=== PATIENT | female | born 1940 | race Caucasian/White ===

== ENCOUNTER 2019-12-21 12:17 | Inpatient (IN) | payer OTHER ==
--- NOTE | 2019-12-21 12:44 | PDOC ---
History of Present Illness - General Chief Complaint: Injury Stated Complaint: FALL Time Seen by Provider: 12/21/19 12:43 Past History - Medical History Allergies/Adverse Reactions: Allergies Allergy/AdvReac Type Severity Reaction Status Date / Time apple Allergy Swelling Verified 12/21/19 13:04 Home Medications: Ambulatory Orders Atenolol [Tenormin -] 20 mg PO DAILY 10/30/11 Levothyroxine [Synthroid -] 100 mcg PO DAILY 10/30/11 Valsartan [Diovan] 80 mg PO DAILY 10/30/11 Anemia: No Asthma: No Cancer: No Cardiac Disorders: No CVA: No COPD: No CHF: No Dementia: No Diabetes: No GI Disorders: Yes (Gallbladder, ABD. PAIN, PEPTIC ULCER DISEASE) Disorders: No HTN: Yes Hypercholesterolemia: Yes (NO MEDS) Liver Disease: No Seizures: No Thyroid Disease: Yes (Hypothyroid) - Surgical History Abdominal Surgery: No Appendectomy: No Cardiac Surgery: No Cholecystectomy: No Lung Surgery: No Neurologic Surgery: No Orthopedic Surgery: No - Immunization History Td Vaccination: Yes TDAP Vaccination: Yes Immunization Up to Date: No - Psycho-Social/Smoking History Smoking Status: Yes Smoking History: Never smoked Number of Cigarettes Smoked Daily: 0 ED Treatment Course - LABORATORY CBC & Chemistry Diagram: 12/21/19 13:03 12/21/19 13:03 Medical Decision Making - Medical Decision Making 12/21/19 12:45 HPI: 79yo F hx spinal stenosis, arthritis, fibromyalgia, HTN, and hypothyroidism (poorly compliant with synthroid), poor f/u with doctors (no PCP, last visit years ago), and venous insuffiency with LE edema BIBA from home c/o 1wk worsening chronic LBP radiating/shooting down RLE with subsequent BLE weakness and collapse 2 days ago. In home 2 days ago witnessed collapse to ground, legs felt weak and just slowly slumped down, unable to get up x2 days, using pads for urination, brought her fluids but she did not eat because she didn't want to have to pass stool, LBM 4 days ago says needs to go but holding it in because couldn't stand up. No hx similar episodes or falls. Denies LOC, head injury, syncope, preceding CP or SOB, seizure-like activity. Pt states usually unable to lift legs off bed, but worsening weakness in BLEs x2 days. Pt also c/o difficulty writing/fine motor skills x2 days, prior to fall pt was knitting/crocheting, now unable to lift blanket. Denies numbness/tingling, headache, vision changes, difficulty speaking, facial droop, hx CVA or neurologic disease. Pt uses wheelchair at baseline but is able to get out and walk small distances to bathroom etc usually. Denies recent illness, travel, sick contacts, F/C, N/V, abdominal pain, CP, SOB, neck pain. ROS: Constitutional: Positive for generalized weakness, fall/collapse. Negative for chills, fever, fatigue, diaphoresis. HENT: Negative for sore throat, rhinorrhea, congestion. Eyes: Negative for visual disturbance. Respiratory: Negative for shortness of breath, cough, and wheezing. Cardiovascular: Negative for chest pain, palpitations, and leg swelling. Gastrointestinal: Negative for abdominal pain, blood in stool, constipation, diarrhea, nausea, and vomiting. Genitourinary: Negative for dysuria, flank pain, and hematuria. Musculoskeletal: Positive for back pain. Negative for myalgias, and neck pain. Skin: Negative for rash. Neurological: Positive for BLE weakness, difficulty BUE fine motor skills. Negative for light-headedness, dizziness, vertigo, syncope, numbness and headaches. Psychiatric/Behavioral: Negative for behavioral problems and confusion. PE: limited 2/2 obesity/soft tissue Gen: Alert, NAD, comfortable-appearing, morbidly obese, appears younger than stated age HEENT: PERRL, EOMI, dry MM, NCAT. No conjunctival pallor. Sclera are non- icteric. CV: Regular rate and rhythm. +murmur. No rubs, or gallops. PULM: No resp distress. CTAB, no wheezes, rales, or rhonchi. ABD: protuberant, soft, NT/ND, no rebound tenderness or guarding, no CVA tenderness. Rectal exam performed. Good rectal tone but perianal anesthesia and pt does not feel herself squeezing. +skin flaps. No nick blood, fissures, or hemorrhoids seen. No masses or hemorrhoids felt. No pain with digital insertion. BACK: +ttp l-spine. No TTP of c/t-spine. No step-offs or deformities. MSK: No bony deformities. 2+ pulses in all extremities. NEURO: AAOx3. PERRL. CN 2-12 intact. No facial droop. Sensation to light touch intact in all extremities. Poor fine motor skills b/l hands, difficulty with "okay" sign b/l, unable to straighten L fingers completely, atrophy of hand musculature, sensation intact throughout, 5/5 strength BUEs, 4/5 strength BLEs, unable to lift legs off bed (baseline per pt). EXTREMITIES: No cyanosis. No clubbing. +nonpitting edema BLE. No calf tenderness. PSYCH: Normal mood and thought pattern. SKIN: Warm and dry. Normal capillary refill. No rashes. No jaundice. White/yellow powder and creams on b/l feet and back. MDM: 79yo F hx spinal stenosis, arthritis, fibromyalgia, HTN, and hypothyroidism (poorly compliant with synthroid), poor f/u with doctors (no PCP, last visit years ago), and venous insuffiency with LE edema BIBA from home c/o 1wk worsening chronic LBP radiating/shooting down RLE with subsequent BLE weakness and collapse 2 days ago. Hemodynamically stable, afebrile. Ddx: deconditioning, cord compression/nerve impingement, sciatica, spinal stenosis, stroke, ICH, rheumatologic disorder, arthritis, ACS/VA, arrhythmia, UTI, infection, metabolic derangement, anemia -EKG -Labs -CTH/c/t/l-spine -Tylenol -IVF -Dispo: pending w/u and reassessment, likely admit for SW and PT, consider NSGY eval 12/21/19 14:07 EKG reviewed: normal sinus rhythm, 67bpm, normal axis, normal intervals, no TWI in aVR, no ST elevations or depressions Labs reviewed. Notable for elevated lipids, CK, AST/ALT. K elevated but hemolysis present and no EKG abnormalities or concerning sx for hyperkalemia. TSH elevated, normal T4. UA + for blood, likely 2/2 rhabdo. -Repeat K CTs reviewed: see reads, notable for L4-L5 disc bulge impinging left L4 nerve root in foramen and mild degenerative central spinal canal stenosis. No indication for emergent NSGY consult/intervention at this time. Admit for rhabdo, elevated LFTs, inability to walk Signed out to admitting Dr Perez Discharge - Discharge Information Problems reviewed: Yes Clinical Impression/Diagnosis: Hyperlipidemia, Rhabdomyolysis, Elevated liver enzymes, Inability to walk, Morbid obesity, L4-L5 disc bulge Condition: Stable - Admission Yes - Follow up/Referral - Patient Discharge Instructions - Post Discharge Activity
--- NOTE | 2019-12-21 13:01 | PDOC ---
Attending Attestation - Resident Resident Name: CatalinaantoineYaquelinRose - ED Attending Attestation I have performed the following: I have examined & evaluated the patient, The case was reviewed & discussed with the resident, I agree w/resident's findings & plan, Exceptions are as noted - HPI HPI: 12/21/19 13:01 79y F hx of hypothyroidism, spinal stensosi, fibromayalgia, and hypertension presents with complaint of weakness. Patient with usual state of health before for Candace when she was on daily basis, unable to transition from wheelchair to go with assistance and was slowly lowered to the ground. Unable to stand up on her own so she was sitting on the ground under the care of her family, they agreed to come to the ER today. Patient denies any focal complaints including fever, chills, cough, nausea, vomiting, chest pain, abdominal pain, dysuria, diarrhea. Chronic lower back pain, she did state that she felt like her legs gave out from under her try to stand up when she was making the transiiton to stand 2 daysa go, denies any recent trauma otherwise she did not hit her head there was no LOC. Loss of fine motor activity in her hands as she started relatively recently. She has been urinating normally and has been holding her bowel movement as she was unable to get to the bathroom. Mild tingling in her legs. - Physicial Exam PE: 12/21/19 13:04 Exam: GENERAL: The patient is awake, alert, and fully oriented, Morbidly obese HEAD: Normocephalic, atraumatic. EYES: extraocular movements intact, sclera anicteric, conjunctiva clear. ENT: Normal voice, Moist mucous membranes. NECK: Normal range of motion, supple LUNGS: Breath sounds equal, clear to auscultation bilaterally. No wheezes, no rhonchi, no rales. HEART: Regular rate and rhythm, normal S1 and S2 without murmur, rub or gallop. ABDOMEN: Soft, nontender, No guarding, no rebound. No CVA tenderness EXTREMITIES: Normal range of motion, b/l le Edema NEUROLOGICAL: No facial assymetry, Normal speech, Moving her lower extremities spontaneously (dorsi/plantar flexion intact) but hip flexion 2/5 (may be due to deconditioning), b/l UE strength symmetric 5-/5, +atrophy, BACK: mild focal tenerness in the mid lumbar spine, no ecchymosis/erythema PSYCH: Normal mood, normal affect. SKIN: Warm, Dry, normal turgor, - Medical Decision Making 12/21/19 14:13 will look for a sysmtic cause for her weakness will obtain blood work to r/o anemia, metabolic derange,ent, ua to r/o occult infection pt also has mild tenderness, obtain CT of the spine to rule out acute injury Patient will likely need subacute rehab Heart Score/ECG Review - ECG Impressions Comment:: 12/21/19 16:20 Twelve-lead EKG was performed and reviewed by me. There is normal sinus rhythm with a normal rate. rate of 67 The axis is normal. The intervals are normal. There is normal R wave progression There are no ST or T wave abnormalities. Impression: Normal twelve-lead EKG Discharge - Discharge Information Problems reviewed: Yes Clinical Impression/Diagnosis: Elevated liver enzymes, Inability to walk, Morbid obesity, L4-L5 disc bulge Hyperlipidemia Qualifiers: Hyperlipidemia type: unspecified Qualified Code(s): E78.5 - Hyperlipidemia, unspecified Rhabdomyolysis Qualifiers: Encounter type: initial encounter Condition: Stable - Admission Yes - Follow up/Referral - Patient Discharge Instructions - Post Discharge Activity
[2019-12-21 13:38] LABS: EOS % 1.9 % (0-4.5); HEMATOCRIT 43.8 % (32.4-45.2); HEMOGLOBIN 14.4 GM/dL (10.7-15.3); LYMPH % 5.8 % (8-40); MCH 28.2 pg (25.7-33.7); MCHC 32.8 g/dl (32.0-36.0); MEAN CELL VOLUME 85.8 fl (80-96); MEAN PLT VOLUME 8.4 fl (7.5-11.1); MONO % 10.9 % (3.8-10.2); NEUT % 80.4 % (42.8-82.8); PLATELET COUNT 275 K/MM3 (134-434); RBC 5.11 M/mm3 (3.60-5.2); RDW 15.3 % (11.6-15.6); WHITE BLOOD COUNT 8.2 K/mm3 (4.0-10.0)
[2019-12-21 13:41] LABS: ALBUMIN 2.8 g/dl (3.4-5.0); ALK PHOS 110 U/L (45-117); ANION GAP 5 MMOL/L (8-16); BILIRUBIN,TOTAL 1.3 mg/dL (0.2-1); BLOOD UREA NITROGEN 38.7 mg/dL (7-18); CALCIUM 8.5 mg/dL (8.5-10.1); CHLORIDE 105 mmol/L (98-107); CO2 29 mmol/L (21-32); CREATININE 1.1 mg/dL (0.55-1.3); GLUCOSE,RANDOM 103 mg/dL (74-106); MAGNESIUM 2.5 mg/dL (1.8-2.4); PHOSPHOROUS 2.7 mg/dL (2.5-4.9); POTASSIUM 5.7 mmol/L (3.5-5.1); SGOT/AST 127 U/L (15-37); SGPT/ALT 74 U/L (13-61); SODIUM 139 mmol/L (136-145); TOT PROT 7.4 g/dl (6.4-8.2)
[2019-12-21] MEDS: ACETAMINOPHEN 500 MG TABLET (FP) PO ONE ×2 (13:42→13:58)
[2019-12-21 15:08] LABS: EPI CELLS 14 /uL (0-25.1); HYALINE CASTS 1 /uL (0-3.1); URINE APPEARANCE CLOUDY; URINE BACTERIA 540 /uL (0-1359); URINE BILIRUBIN NEGATIVE (NEGATIVE); URINE COLOR YELLOW; URINE GLUCOSE (UA) NEGATIVE (NEGATIVE); URINE KETONE NEGATIVE (NEGATIVE); URINE LEUK ESTERASE TRACE (NEGATIVE); URINE NITRITE NEGATIVE (NEGATIVE); URINE PROTEIN 1+ (NEGATIVE); URINE RBC 151 /uL (0-23.9); URINE UROBILINOGEN 0.2 mg/dL (0.2-1.0); URINE WBC 48 /uL (0-25.8)
[2019-12-21] MEDS ORDERED: SODIUM CHLORIDE 0.9% 500 ML INFUS.BAG IV ONE (15:13)
--- NOTE | 2019-12-21 16:27 | HP ---
CHIEF COMPLAINT: Fall PCP: None HISTORY OF PRESENT ILLNESS: 79yo F with h/o spinal stenosis and RLE parasthesias, hypothyroidism, fibromyalgia, and hiatal hernia who presents today after fall and remaining on ground. Patient fell two days ago. She normally uses a wheelchair due to deconditioning and would take short steps to the bathroom and other house activities. Two days ago patient's left leg felt like it buckled and she fell to the floor. She remained there for two days under the care of her family who would bring her fluids and food. Patient started to limit intake because she did not want to use the restroom as she remained on the floor unable to stand for the bathroom. Patient reports her chronic lower back pain had been worsening and she was recommended to take a medication to help, however after reading the side effect profile, she did not want tos tart. Has never tried gabapentin for her neuropathic pain. She denies any head trauma or LOC. She denies any preceding symptoms to the fall such as dizziness/lightheadedness, palpitations, chest pain, SOB. Patient is amenable to subacute rehab facility. PAST MEDICAL HISTORY: As above PAST SURGICAL HISTORY: None Social History: Smoking: Denies Alcohol: Denies Drugs: Denies Stays at home regularly with and other family members; retired elementary school librarian Family History: Mother , MS as elderly woman; father , CVA as elderly man; brother , cancer of unknown type; brother living, coronary bypass x 2 Allergies apple Allergy (Verified 12/21/19 13:04) Swelling HOME MEDICATIONS: Home Medications Medication Instructions Recorded Atenolol [Tenormin -] 20 mg PO DAILY 10/30/11 Levothyroxine [Synthroid -] 100 mcg PO DAILY 10/30/11 Valsartan [Diovan] 80 mg PO DAILY 10/30/11 REVIEW OF SYSTEMS As per HPI PHYSICAL EXAMINATION Vital Signs - 24 hr 12/21/19 12/21/19 12:20 15:13 Temperature 98 F Pulse Rate 80 Respiratory 16 Rate Blood Pressure 137/69 O2 Sat by Pulse 100 98 Oximetry (%) GENERAL: Awake, alert, and fully oriented, in no acute distress. HEAD: Normal with no signs of trauma. EYES: Pupils equal, round and reactive to light, extraocular movements intact, sclera anicteric, conjunctiva clear. No lid lag. EARS, NOSE, THROAT: Ears normal, nares patent, oropharynx clear without exudates. Moist mucous membranes. NECK: Normal range of motion, supple without lymphadenopathy, JVD, or masses. LUNGS: Breath sounds equal, clear to auscultation bilaterally. No wheezes, and no crackles. No accessory muscle use. HEART: Regular rate and rhythm, normal S1 and S2 without murmur, rub or gallop. ABDOMEN: Soft, nontender, not distended, normoactive bowel sounds, no guarding, no rebound, no masses. No hepatomegaly or splenomegaly. MUSCULOSKELETAL: Normal range of motion at all joints. No bony deformities or tenderness. No CVA tenderness. UPPER EXTREMITIES: 2+ pulses, warm, well-perfused. No cyanosis. No clubbing. No peripheral edema. LOWER EXTREMITIES: 2+ pulses, warm, well-perfused. No calf tenderness. No peripheral edema. NEUROLOGICAL: Cranial nerves II-XII intact. Normal speech. Normal gait. PSYCHIATRIC: Cooperative. Good eye contact. Appropriate mood and affect. SKIN: Warm, dry, normal turgor, no rashes or lesions noted, normal capillary refill. Laboratory Results - last 24 hr 12/21/19 12/21/19 12/21/19 13:03 13:03 13:03 WBC 8.2 RBC 5.11 Hgb 14.4 Hct 43.8 MCV 85.8 MCH 28.2 MCHC 32.8 RDW 15.3 Plt Count 275 D MPV 8.4 Absolute Neuts (auto) 6.6 Neutrophils % 80.4 Lymphocytes % 5.8 L D Monocytes % 10.9 H Eosinophils % 1.9 Basophils % 1.0 Nucleated RBC % 0 PTT (Actin FS) 31.7 Sodium 139 Potassium 5.7 H Chloride 105 Carbon Dioxide 29 Anion Gap 5 L BUN 38.7 H Creatinine 1.1 Est GFR (CKD-EPI)AfAm 54.91 Est GFR (CKD-EPI)NonAf 47.38 Random Glucose 103 Calcium 8.5 Phosphorus 2.7 Magnesium 2.5 H Total Bilirubin 1.3 H AST 127 H ALT 74 H Alkaline Phosphatase 110 Creatine Kinase 1537 H Creatine Kinase Index 0.2 CK-MB (CK-2) 4.5 H Troponin I < 0.02 Total Protein 7.4 Albumin 2.8 L Triglycerides Cholesterol Total LDL Cholesterol HDL Cholesterol TSH 4.10 H Free T4 Urine Color Urine Appearance Urine pH Ur Specific [place] Urine Protein Urine Glucose (UA) Urine Ketones Urine Blood Urine Nitrite Urine Bilirubin Urine Urobilinogen Ur Leukocyte Esterase Urine WBC (Auto) Urine RBC (Auto) Urine Casts (Auto) U Epithel Cells (Auto) Urine Bacteria (Auto) Blood Type Antibody Screen 12/21/19 12/21/19 12/21/19 13:03 13:03 13:55 WBC RBC Hgb Hct MCV MCH MCHC RDW Plt Count MPV Absolute Neuts (auto) Neutrophils % Lymphocytes % Monocytes % Eosinophils % Basophils % Nucleated RBC % PTT (Actin FS) Sodium Potassium Chloride Carbon Dioxide Anion Gap BUN Creatinine Est GFR (CKD-EPI)AfAm Est GFR (CKD-EPI)NonAf Random Glucose Calcium Phosphorus Magnesium Total Bilirubin AST ALT Alkaline Phosphatase Creatine Kinase Creatine Kinase Index CK-MB (CK-2) Troponin I Total Protein Albumin Triglycerides 118 Cholesterol 222 H Total LDL Cholesterol 136 H HDL Cholesterol 78 H TSH Free T4 1.24 Urine Color Yellow Urine Appearance Cloudy Urine pH 5.0 Ur Specific [place] 1.024 Urine Protein 1+ H Urine Glucose (UA) Negative Urine Ketones Negative Urine Blood 2+ H Urine Nitrite Negative Urine Bilirubin Negative Urine Urobilinogen 0.2 Ur Leukocyte Esterase Trace Urine WBC (Auto) 48 Urine RBC (Auto) 151 Urine Casts (Auto) 1 U Epithel Cells (Auto) 14 Urine Bacteria (Auto) 540 Blood Type Cancelled Antibody Screen Cancelled ASSESSMENT/PLAN: Fall 2/2 chronic deconditioning Rhabdomyolysis Inability to Ambulate History of Hypothyroidism, poorly compliant History of spinal stenosis with parasthesias History of HTN History of Fibromyalgia --Patient requires inpatient care for IVF with rhabdomyolysis --NS@100cc/hr; no prior echocardiograms noted (cardiac w/u in 2016 deemed to be done in outpatient basis) --Physical therapy consulted; social research assistant consulted for likely STR for disposition once acute issues resolving --CT imaging reviewed with any significant bony abnormalities of spine or compromise of spinal canal --likely chronic deconditioning with on-going decline --Can start Gabapentin 200mg TID for neuropathic pain --Abrasions cared with bacitracin and dressing --Hyperkalemia noted on initial labs, however suspicion of hemolysis --Rpt K+ level and treat if elevated --ECG reviewed without any acute changes --Continue synthroid 100mcg qdaily --TSH/T4 levels noted with subclinical hypothyroidism --Unsure why patient is on atenolol and will hold until further information acquired --Relatively controlled BP currently and will hold ACEi which can be restarted as needed --CBC, BMP, CPK, A1c ordered for tomorrow AM Dispo: M/kenna Perez DO - IM Family Medical History Family History: As Documented Visit type - Medication Review Med list reviewed for High Risk Meds patients 65 and older: Yes - Emergency Visit Emergency Visit: Yes ED Registration Date: 12/21/19 Care time: The patient presented to the Emergency Department on the above date and was hospitalized for further evaluation of their emergent condition. - New Patient This patient is new to me today: Yes Date on this admission: 12/21/19 - Critical Care Critical Care patient: No
[2019-12-21] MEDS: SODIUM CHLORIDE 1,000 ML IV SCH (16:42)
[2019-12-21] MEDS ORDERED: POTASSIUM CHLORIDE TABS 20 MEQ TABLET.ER (FP) PO ONE (17:09)
[2019-12-21] MEDS: HEPARIN NA (PORCINE) 5,000 UNITS/ML 1ML VIAL SQ SCH ×2 (22:15→22:42)
[2019-12-21] MEDS: GABAPENTIN 100 MG CAPSULE PO SCH (22:15)
[2019-12-21 23:46] VITALS: BMI 53.5
[2019-12-22] MEDS: SODIUM CHLORIDE 1,000 ML IV SCH ×2 (01:45→17:48)
[2019-12-22] MEDS: LEVOTHYROXINE NA 100 MCG TABLET (FP) PO SCH (06:50)
[2019-12-22] MEDS: GABAPENTIN 100 MG CAPSULE PO SCH ×3 (06:50→21:21)
[2019-12-22] MEDS: HEPARIN NA (PORCINE) 5,000 UNITS/ML 1ML VIAL SQ SCH ×3 (06:50→21:21)
[2019-12-22 08:39] LABS: HEMATOCRIT 39.6 % (32.4-45.2); MCH 28.5 pg (25.7-33.7); MCHC 32.7 g/dl (32.0-36.0); MEAN CELL VOLUME 87.1 fl (80-96); PLATELET COUNT 219 K/MM3 (134-434); RBC 4.55 M/mm3 (3.60-5.2); RDW 15.1 % (11.6-15.6); WHITE BLOOD COUNT 6.1 K/mm3 (4.0-10.0)
[2019-12-22 09:06] LABS: BLOOD UREA NITROGEN 29.6 mg/dL (7-18); CALCIUM 8.5 mg/dL (8.5-10.1); POTASSIUM 4.2 mmol/L (3.5-5.1)
--- NOTE | 2019-12-22 11:20 | PN ---
Progress Note (short form) - Note Progress Note: Subjective: no fever or chills, no SHELTON , has chronic back pain, reprots her L hip, knee buckled which lead to initial fall then stayed on floor for 3 days. on day of admission she felt very dizzy (can't specify) while sitting on floor and fell back. reports compliance with ll meds except synthroid lives with her and has no aid, children, or relatives . Objective: Vital Signs: Last Vital Signs Temp Pulse Resp BP Pulse Ox 97.7 F 84 24 H 142/68 96 12/22/19 10:00 12/22/19 10:00 12/22/19 10:00 12/22/19 10:00 12/22/19 10:00 Laboratory Results - last 24 hr 12/21/19 12/21/19 12/21/19 13:03 13:03 13:03 WBC 8.2 RBC 5.11 Hgb 14.4 Hct 43.8 MCV 85.8 MCH 28.2 MCHC 32.8 RDW 15.3 Plt Count 275 D MPV 8.4 Absolute Neuts (auto) 6.6 Neutrophils % 80.4 Lymphocytes % 5.8 L D Monocytes % 10.9 H Eosinophils % 1.9 Basophils % 1.0 Nucleated RBC % 0 PTT (Actin FS) 31.7 Sodium 139 Potassium 5.7 H Chloride 105 Carbon Dioxide 29 Anion Gap 5 L BUN 38.7 H Creatinine 1.1 Est GFR (CKD-EPI)AfAm 54.91 Est GFR (CKD-EPI)NonAf 47.38 Random Glucose 103 Calcium 8.5 Phosphorus 2.7 Magnesium 2.5 H Total Bilirubin 1.3 H AST 127 H ALT 74 H Alkaline Phosphatase 110 Creatine Kinase 1537 H Creatine Kinase Index 0.2 CK-MB (CK-2) 4.5 H Troponin I < 0.02 Total Protein 7.4 Albumin 2.8 L Triglycerides Cholesterol Total LDL Cholesterol HDL Cholesterol TSH 4.10 H Free T4 Urine Color Urine Appearance Urine pH Ur Specific [place] Urine Protein Urine Glucose (UA) Urine Ketones Urine Blood Urine Nitrite Urine Bilirubin Urine Urobilinogen Ur Leukocyte Esterase Urine WBC (Auto) Urine RBC (Auto) Urine Casts (Auto) U Epithel Cells (Auto) Urine Crystals (Auto) Urine Bacteria (Auto) COVID-19 (NAHUN) Blood Type Antibody Screen 12/21/19 12/21/19 12/21/19 13:03 13:03 13:55 WBC RBC Hgb Hct MCV MCH MCHC RDW Plt Count MPV Absolute Neuts (auto) Neutrophils % Lymphocytes % Monocytes % Eosinophils % Basophils % Nucleated RBC % PTT (Actin FS) Sodium Potassium Chloride Carbon Dioxide Anion Gap BUN Creatinine Est GFR (CKD-EPI)AfAm Est GFR (CKD-EPI)NonAf Random Glucose Calcium Phosphorus Magnesium Total Bilirubin AST ALT Alkaline Phosphatase Creatine Kinase Creatine Kinase Index CK-MB (CK-2) Troponin I Total Protein Albumin Triglycerides 118 Cholesterol 222 H Total LDL Cholesterol 136 H HDL Cholesterol 78 H TSH Free T4 1.24 Urine Color Yellow Urine Appearance Cloudy Urine pH 5.0 Ur Specific [place] 1.024 Urine Protein 1+ H Urine Glucose (UA) Negative Urine Ketones Negative Urine Blood 2+ H Urine Nitrite Negative Urine Bilirubin Negative Urine Urobilinogen 0.2 Ur Leukocyte Esterase Trace Urine WBC (Auto) 48 Urine RBC (Auto) 151 Urine Casts (Auto) 1 U Epithel Cells (Auto) 14 Urine Crystals (Auto) None Urine Bacteria (Auto) 540 COVID-19 (NAHUN) Blood Type Cancelled Antibody Screen Cancelled 12/21/19 12/21/19 12/22/19 15:10 16:15 08:00 WBC 6.1 RBC 4.55 Hgb 13.0 Hct 39.6 MCV 87.1 MCH 28.5 MCHC 32.7 RDW 15.1 Plt Count 219 D MPV 8.0 Absolute Neuts (auto) Neutrophils % Lymphocytes % Monocytes % Eosinophils % Basophils % Nucleated RBC % PTT (Actin FS) Sodium Potassium 3.3 L Chloride Carbon Dioxide Anion Gap BUN Creatinine Est GFR (CKD-EPI)AfAm Est GFR (CKD-EPI)NonAf Random Glucose Calcium Phosphorus Magnesium Total Bilirubin AST ALT Alkaline Phosphatase Creatine Kinase Creatine Kinase Index CK-MB (CK-2) Troponin I Total Protein Albumin Triglycerides Cholesterol Total LDL Cholesterol HDL Cholesterol TSH Free T4 Urine Color Urine Appearance Urine pH Ur Specific [place] Urine Protein Urine Glucose (UA) Urine Ketones Urine Blood Urine Nitrite Urine Bilirubin Urine Urobilinogen Ur Leukocyte Esterase Urine WBC (Auto) Urine RBC (Auto) Urine Casts (Auto) U Epithel Cells (Auto) Urine Crystals (Auto) Urine Bacteria (Auto) COVID-19 (NAHUN) Not detected Blood Type Antibody Screen 12/22/19 08:00 WBC RBC Hgb Hct MCV MCH MCHC RDW Plt Count MPV Absolute Neuts (auto) Neutrophils % Lymphocytes % Monocytes % Eosinophils % Basophils % Nucleated RBC % PTT (Actin FS) Sodium 142 Potassium 4.2 Chloride 107 Carbon Dioxide 30 Anion Gap 5 L BUN 29.6 H Creatinine 1.0 Est GFR (CKD-EPI)AfAm 61.62 Est GFR (CKD-EPI)NonAf 53.17 Random Glucose 118 H Calcium 8.5 Phosphorus Magnesium Total Bilirubin AST ALT Alkaline Phosphatase Creatine Kinase 756 H Creatine Kinase Index 0.3 CK-MB (CK-2) 3.0 Troponin I Total Protein Albumin Triglycerides Cholesterol Total LDL Cholesterol HDL Cholesterol TSH Free T4 Urine Color Urine Appearance Urine pH Ur Specific [place] Urine Protein Urine Glucose (UA) Urine Ketones Urine Blood Urine Nitrite Urine Bilirubin Urine Urobilinogen Ur Leukocyte Esterase Urine WBC (Auto) Urine RBC (Auto) Urine Casts (Auto) U Epithel Cells (Auto) Urine Crystals (Auto) Urine Bacteria (Auto) COVID-19 (NAHUN) Blood Type Antibody Screen Physical Exam: NAD, awake, alaert, cooperative CV: RRR, no MRG Lungs: CTAB Abd: soft, ND , obese, tender in epigastric area. Ext : thick scaly laye on legsa nd feet. no ulcers on feet , R lateral mcgrath ulcer with no drainage , no surounding erythema Lungs : CTAB . skin: 0.5 cm stage 2 ulcer on inner gluteal area on L side. erythema and moist skin under pannus and groins beuro: no facial droop, EOMI, nl facial sensation , tongue at mid line . strength 5/5 in upper extremities proximally and distally. hip flesion 2/5 both sides, sensatio to light touch nl b/l. nose to finger nl b/l Imaging: CT head, spine reportse reviewed. Assessment/Plan: 79 y/o lady with h/o spinal stenosis , RLE parasthesias, hypothyroidism, fibromyalgia, and hiatal hernia who presented after a fall and inability to get up fro 3 days. she was found to have Rhabdo. 1- mechanical fall, due to spinal stenosis, OA , and deconditioning. neuro exam as above . CTs reviewed. 2- Rhabdo : CPK improved . cont IVF 3- Transaminitis : likely due to Rhabdo. will repeat in am. no TTP in RUQ. 4- volume depletion : cont IVF 5- h/o HTN: resume atenolol and hold valsartan due to volume depletion 6- h/o hypothyroidism: cont her synthroid. 8- Pt eval DVT PX social work consult. will need placement Visit type - Emergency Visit Emergency Visit: Yes ED Registration Date: 12/21/19 Care time: The patient presented to the Emergency Department on the above date and was hospitalized for further evaluation of their emergent condition. - New Patient This patient is new to me today: Yes Date on this admission: 12/22/19 - Critical Care Critical Care patient: No - Medication Review Med list reviewed for High Risk Meds patients 65 and older: Yes
[2019-12-22] MEDS ORDERED: BACITRACIN 15 GM TUBE TOPICAL OINTMENT ONE (11:53)
[2019-12-22] MEDS: BACITRACIN 15 GM TUBE TOPICAL OINTMENT TP SCH (11:59)
[2019-12-22] MEDS: NYSTATIN 100,000 UNIT/GM TOPICAL CREAM 15 GM TUBE TP SCH ×2 (12:47→21:21)
[2019-12-22] MEDS ORDERED: ATENOLOL 25 MG TABLET (FP) ONE (13:03)
[2019-12-22] MEDS ORDERED: ATENOLOL 25 MG TABLET (FP) PO ONE (13:22)
[2019-12-22] MEDS ORDERED: ACETAMINOPHEN 325 MG TABLET (FP) PO ONE (16:22)
[2019-12-22] MEDS ORDERED: GABAPENTIN 100 MG CAPSULE ONE (21:09)
[2019-12-22] MEDS ORDERED: HEPARIN NA (PORCINE) 5,000 UNITS/ML 1ML VIAL ONE (21:09)
--- NOTE | 2019-12-22 21:37 | EKG ---
Test Reason : Blood Pressure : / mmHG Vent. Rate : 067 BPM Atrial Rate : 067 BPM P-R Int : 146 ms QRS Dur : 088 ms QT Int : 416 ms P-R-T Axes : 068 009 041 degrees QTc Int : 439 ms NORMAL SINUS RHYTHM NORMAL ECG WHEN COMPARED WITH ECG OF 19-JAN-2016 13:40, NO SIGNIFICANT CHANGE WAS FOUND Confirmed by SHARLA ESCOBAR MD ([id number]) on 12/22/2019 9:37:30 PM Referred By: Confirmed By:SHARLA ESCOBAR MD
[2019-12-23] MEDS: SODIUM CHLORIDE 1,000 ML IV SCH (04:00)
[2019-12-23] MEDS ORDERED: LEVOTHYROXINE NA 100 MCG TABLET (FP) ONE (06:09)
[2019-12-23] MEDS ORDERED: HEPARIN NA (PORCINE) 5,000 UNITS/ML 1ML VIAL ONE (06:09)
[2019-12-23] MEDS ORDERED: GABAPENTIN 100 MG CAPSULE ONE (06:09)
[2019-12-23] MEDS: LEVOTHYROXINE NA 100 MCG TABLET (FP) PO SCH (06:23)
[2019-12-23] MEDS: GABAPENTIN 100 MG CAPSULE PO SCH ×3 (06:23→21:54)
[2019-12-23] MEDS: HEPARIN NA (PORCINE) 5,000 UNITS/ML 1ML VIAL SQ SCH ×3 (06:23→21:54)
[2019-12-23 08:36] LABS: ALBUMIN 2.3 g/dl (3.4-5.0); BILIRUBIN,DIRECT 0.2 mg/dL (0.0-0.2); BILIRUBIN,TOTAL 0.5 mg/dL (0.2-1); BLOOD UREA NITROGEN 29.8 mg/dL (7-18); CALCIUM 7.8 mg/dL (8.5-10.1); CREATININE 0.9 mg/dL (0.55-1.3); MAGNESIUM 2.4 mg/dL (1.8-2.4); PHOSPHOROUS 2.6 mg/dL (2.5-4.9); TOT PROT 5.6 g/dl (6.4-8.2)
[2019-12-23] MEDS ORDERED: FLU VACCINE (FLULAVAL) PF 60 MCG/0.5 ML SYRINGE 2020-2021 IM ONE (10:00)
[2019-12-23] MEDS ORDERED: ATENOLOL 25 MG TABLET (FP) PO SCH (10:00)
[2019-12-23] MEDS: VALSARTAN 80 MG TABLET PO SCH (12:02)
[2019-12-23] MEDS: BACITRACIN 15 GM TUBE TOPICAL OINTMENT TP SCH (12:04)
[2019-12-23] MEDS: NYSTATIN 100,000 UNIT/GM TOPICAL CREAM 15 GM TUBE TP SCH ×2 (12:04→21:54)
[2019-12-23] MEDS: FAMOTIDINE 20 MG TABLET PO SCH (15:35)
[2019-12-23] MEDS ORDERED: PT OWN MED DRAWER 7, Y5N ONE (16:04)
--- NOTE | 2019-12-23 17:08 | PN ---
Physical Exam: SUBJECTIVE: Patient seen and examined. Pt stated that she had diffuse bodily pain that was chronic. No acute events overnight. OBJECTIVE: Vital Signs Period Temp Pulse Resp BP Sys/Brooke Pulse Ox Last 24 Hr 98 F-99.5 F 73-87 18-24 119-159/49-80 95-97 GENERAL: Awake, alert. Tearful. HEENT: NCAT, EOMI, moist mucus membranes. CARDIAC: Regular rate and rhythm, no murmurs. ABDOMEN: Obese, nondistended, nontender to palpation. Normoactive bowel sounds. EXTREMITIES: Warm, well-perfused. Tender to palpation. NEURO: B/l UE 5/5 strength. Hip flexion 3/5 b/l. Dorsiflexion and plantarflexion 5/5 b/l. Sensation intact in all extremities. SKIN: Scaly skin on b/l LE. RLE with ulcer that was not draining. Laboratory Last Values WBC 6.1 K/mm3 (4.0-10.0) 12/22/19 08:00 RBC 4.55 M/mm3 (3.60-5.2) 12/22/19 08:00 Hgb 13.0 GM/dL (10.7-15.3) 12/22/19 08:00 Hct 39.6 % (32.4-45.2) 12/22/19 08:00 MCV 87.1 fl (80-96) 12/22/19 08:00 MCH 28.5 pg (25.7-33.7) 12/22/19 08:00 MCHC 32.7 g/dl (32.0-36.0) 12/22/19 08:00 RDW 15.1 % (11.6-15.6) 12/22/19 08:00 Plt Count 219 K/MM3 (134-434) D 12/22/19 08:00 MPV 8.0 fl (7.5-11.1) 12/22/19 08:00 Absolute Neuts (auto) 6.6 K/mm3 (1.5-8.0) 12/21/19 13:03 Neutrophils % 80.4 % (42.8-82.8) 12/21/19 13:03 Lymphocytes % 5.8 % (8-40) L D 12/21/19 13:03 Monocytes % 10.9 % (3.8-10.2) H 12/21/19 13:03 Eosinophils % 1.9 % (0-4.5) 12/21/19 13:03 Basophils % 1.0 % (0-2.0) 12/21/19 13:03 Nucleated RBC % 0 % (0-0) 12/21/19 13:03 PTT (Actin FS) 31.7 SECONDS (25.2-36.5) 12/21/19 13:03 Sodium 143 mmol/L (136-145) 12/23/19 07:18 Potassium 4.0 mmol/L (3.5-5.1) 12/23/19 07:18 Chloride 111 mmol/L (98-107) H 12/23/19 07:18 Carbon Dioxide 25 mmol/L (21-32) 12/23/19 07:18 Anion Gap 7 MMOL/L (8-16) L 12/23/19 07:18 BUN 29.8 mg/dL (7-18) H 12/23/19 07:18 Creatinine 0.9 mg/dL (0.55-1.3) 12/23/19 07:18 Est GFR (CKD-EPI)AfAm 69.99 12/23/19 07:18 Est GFR (CKD-EPI)NonAf 60.39 12/23/19 07:18 Random Glucose 91 mg/dL (74-106) 12/23/19 07:18 Calcium 7.8 mg/dL (8.5-10.1) L 12/23/19 07:18 Phosphorus 2.6 mg/dL (2.5-4.9) 12/23/19 07:18 Magnesium 2.4 mg/dL (1.8-2.4) 12/23/19 07:18 Total Bilirubin 0.5 mg/dL (0.2-1) 12/23/19 07:18 Direct Bilirubin 0.2 mg/dL (0.0-0.2) 12/23/19 07:18 AST 33 U/L (15-37) 12/23/19 07:18 ALT 44 U/L (13-61) 12/23/19 07:18 Alkaline Phosphatase 86 U/L (45-117) 12/23/19 07:18 Creatine Kinase 343 U/L (26-192) H 12/23/19 07:18 Creatine Kinase Index 0.5 % (0.0-5.0) 12/23/19 07:18 CK-MB (CK-2) 1.8 ng/mL (0.5-3.6) 12/23/19 07:18 Troponin I < 0.02 ng/ml (0.00-0.05) 12/21/19 13:03 Total Protein 5.6 g/dl (6.4-8.2) L 12/23/19 07:18 Albumin 2.3 g/dl (3.4-5.0) L 12/23/19 07:18 Triglycerides 118 mg/dL (0-150) 12/21/19 13:03 Cholesterol 222 mg/dL (50-200) H 12/21/19 13:03 Total LDL Cholesterol 136 mg/dL (5-100) H 12/21/19 13:03 HDL Cholesterol 78 mg/dL (40-60) H 12/21/19 13:03 TSH 4.10 uIU/ml (0.358-3.74) H 12/21/19 13:03 Free T4 1.24 ng/dl (0.76-1.46) 12/21/19 13:03 Urine Color Yellow 12/21/19 13:55 Urine Appearance Cloudy 12/21/19 13:55 Urine pH 5.0 (5.0-8.0) 12/21/19 13:55 Ur Specific [place] 1.024 (1.010-1.035) 12/21/19 13:55 Urine Protein 1+ (NEGATIVE) H 12/21/19 13:55 Urine Glucose (UA) Negative (NEGATIVE) 12/21/19 13:55 Urine Ketones Negative (NEGATIVE) 12/21/19 13:55 Urine Blood 2+ (NEGATIVE) H 12/21/19 13:55 Urine Nitrite Negative (NEGATIVE) 12/21/19 13:55 Urine Bilirubin Negative (NEGATIVE) 12/21/19 13:55 Urine Urobilinogen 0.2 mg/dL (0.2-1.0) 12/21/19 13:55 Ur Leukocyte Esterase Trace (NEGATIVE) 12/21/19 13:55 Urine WBC (Auto) 48 /uL (0-25.8) 12/21/19 13:55 Urine RBC (Auto) 151 /uL (0-23.9) 12/21/19 13:55 Urine Casts (Auto) 1 /uL (0-3.1) 12/21/19 13:55 U Epithel Cells (Auto) 14 /uL (0-25.1) 12/21/19 13:55 Urine Crystals (Auto) None /hpf 12/21/19 13:55 Urine Bacteria (Auto) 540 /uL (0-1359) 12/21/19 13:55 COVID-19 (NAHUN) Not detected (Not Detected) 12/21/19 15:10 Blood Type Cancelled 12/21/19 13:03 Antibody Screen Cancelled 12/21/19 13:03 Active Medications Atenolol (Tenormin -) 25 mg PO DAILY [facility] Bacitracin (Bacitracin -) 1 applic TP DAILY [facility] Last Admin: 12/23/19 12:04 Dose: 1 applic Documented by: Famotidine (Pepcid -) 20 mg PO DAILY [facility] Last Admin: 12/23/19 15:35 Dose: 20 mg Documented by: Gabapentin (Neurontin -) 200 mg PO TID [facility] Heparin Sodium (Porcine) (Heparin -) 5,000 unit SQ TID [facility] Levothyroxine Sodium (Synthroid -) 100 mcg PO ACBK [facility] Nystatin (Mycostatin Cream -) 1 applic TP BID [facility] Last Admin: 12/23/19 12:04 Dose: 1 applic Documented by: Valsartan (Diovan -) 80 mg PO DAILY [facility] Last Admin: 12/23/19 12:02 Dose: 80 mg Documented by: CT head, c-spine, t-spine, l-spine No significant interval change or CT evidence of acute intracranial pathology is identified. There is straightening of the cervical spine. Multilevel mild and mild to moderate degenerative disc disease with mild anterior spondylosis and multilevel minimal disc osteophyte complex without any significant compromise of the spinal canal. However, evaluation of the spinal canal is quite limited due to beam hardening artifacts Lung windows at the thoracic inlet demonstrates mild COPD changes/centrilobular emphysema. No compression fracture or subluxation is identified. There is no gross evidence of spinal canal stenosis. However, evaluation of the intraspinal contents are limited on this exam. No focal sclerotic or lytic lesion is identified Grade 1 anterolisthesis of L4 over L5 with moderate to marked degenerative disc disease, marked bilateral facet hypertrophy, mild broad-based disc bulge impinging left L4 nerve root in the foramen and mild degenerative central spinal canal stenosis. L3-L4 and L5-S1 moderate to marked bilateral facet hypertrophy. ASSESSMENT/PLAN: 79 yo F with PMH HTN, hypothyroidism, fibromyalgia, spinal stenoisis, RLE parasthesias and hiatal hernia presented to ED s/p mechanical fall. She was admitted for mechanical fall secondary to spinal stenosis and rhabdomyolysis. Mechanical fall secondary to spinal stenosis and deconditioning -CT as above. -c/w physical therapy -will benefit from short term rehab Rhabdomyolysis, improving -CK improving -Cr at baseline, no kidney failure as a result of rhabdo -d/c IVF Gluteal ulcer, ulcer on RLE -c/w bacitracin, nystatin cream -continue to monitor Fibromyalgia -c/w gabapentin 200mg TID HTN -continue home BP meds: Valsartan 80mg qD, Atenolol 20mg qD -monitor BP Hypothyroidism -c/w home dose levothyroxine 100mcg qD Ppx -DVT: SQH -GI: pepcid FEN -no standing fluids -replete electrolytes -gluten restricted diet, low sodium, low fat. Dispo: pending approval to rehabilitation center Visit type - Emergency Visit Emergency Visit: Yes ED Registration Date: 12/21/19 Care time: The patient presented to the Emergency Department on the above date and was hospitalized for further evaluation of their emergent condition. - New Patient This patient is new to me today: Yes Date on this admission: 12/23/19 - Critical Care Critical Care patient: No - Medication Review Med list reviewed for High Risk Meds patients 65 and older: Yes ATTENDING PHYSICIAN STATEMENT I saw and evaluated the patient. I reviewed the resident's note and discussed the case with the resident. I agree with the resident's findings and plan as documented. SUBJECTIVE: OBJECTIVE: ASSESSMENT AND PLAN:
--- NOTE | 2019-12-23 17:54 | PN ---
Teaching Attending Note Name of Resident: Deb Garcia ATTENDING PHYSICIAN STATEMENT I saw and evaluated the patient. I reviewed the resident's note and discussed the case with the resident. I agree with the resident's findings and plan as documented. SUBJECTIVE: No fever or chills. No SHELTON , no SOB . has heart burn. OBJECTIVE: NAD, awake, alaert, cooperative CV: RRR, no MRG Lungs: CTAB Abd: soft, ND , obese,NT Ext: thick scaly layer on legs and feet. no ulcers on feet , R lateral mcgrath ulcer with no drainage , no surrounding erythema Lungs: CTAB . Assessment/Plan: 79 y/o lady with h/o spinal stenosis , RLE parasthesias, hypothyroidism, fibromyalgia, and hiatal hernia who presented after a fall and inability to get up fro 3 days. she was found to have Rhabdo. 1- Mechanical fall, due to spinal stenosis, OA , and deconditioning. 2- Rhabdo: CPK improved . dc IVF 3- Transaminitis : likely due to Rhabdo. normalized 4- volume depletion : improve d. cont with oral hydration 5- h/o HTN: cont atenolol and resume valsartan 6- h/o hypothyroidism: cont her synthroid. 8- Pt eval DVT PX Appreciate SW help. SNF placement pending.
[2019-12-23] MEDS: ACETAMINOPHEN 325 MG TABLET (FP) PO PRN (18:26)
[2019-12-24] MEDS ORDERED: ACETAMINOPHEN W/ CODEINE LIQ 5 ML CUP PO ONE (04:04)
[2019-12-24] MEDS: HEPARIN NA (PORCINE) 5,000 UNITS/ML 1ML VIAL SQ SCH ×3 (06:17→21:35)
[2019-12-24] MEDS: GABAPENTIN 100 MG CAPSULE PO SCH ×3 (06:18→21:36)
[2019-12-24] MEDS: LEVOTHYROXINE NA 100 MCG TABLET (FP) PO SCH (06:31)
[2019-12-24 08:58] LABS: BLOOD UREA NITROGEN 20.2 mg/dL (7-18); CALCIUM 7.8 mg/dL (8.5-10.1); POTASSIUM 4.4 mmol/L (3.5-5.1)
[2019-12-24 09:02] LABS: CREATININE 0.8 mg/dL (0.55-1.3)
--- NOTE | 2019-12-24 09:33 | PN ---
Teaching Attending Note Name of Resident: Deb Garcia ATTENDING PHYSICIAN STATEMENT I saw and evaluated the patient. I reviewed the resident's note and discussed the case with the resident. I agree with the resident's findings and plan as documented. SUBJECTIVE: Patient reports that she is having a hard time swallowing her food as if she is choking on having chicken and rice and could not drink water to wash it down bc she feels that she is chocking and having pain in her chest. She reports that this happens to her sporadically and feels that she is sensitive to some stuff in the food,and She doesnt feel like the solid food gets stuck and she feels she chews well OBJECTIVE: Vital Signs Temperature 99 F 12/24/19 05:00 Pulse Rate 70 12/24/19 05:00 Respiratory Rate 18 12/24/19 05:00 Blood Pressure 121/60 12/24/19 05:00 O2 Sat by Pulse Oximetry (%) 97 12/24/19 05:00 PE: Per resident's note CBCD WBC 6.1 K/mm3 (4.0-10.0) 12/22/19 08:00 RBC 4.55 M/mm3 (3.60-5.2) 12/22/19 08:00 Hgb 13.0 GM/dL (10.7-15.3) 12/22/19 08:00 Hct 39.6 % (32.4-45.2) 12/22/19 08:00 MCV 87.1 fl (80-96) 12/22/19 08:00 MCHC 32.7 g/dl (32.0-36.0) 12/22/19 08:00 RDW 15.1 % (11.6-15.6) 12/22/19 08:00 Plt Count 219 K/MM3 (134-434) D 12/22/19 08:00 MPV 8.0 fl (7.5-11.1) 12/22/19 08:00 CMP Sodium 141 mmol/L (136-145) 12/24/19 07:18 Potassium 4.4 mmol/L (3.5-5.1) 12/24/19 07:18 Chloride 110 mmol/L (98-107) H 12/24/19 07:18 Carbon Dioxide 25 mmol/L (21-32) 12/24/19 07:18 Anion Gap 6 MMOL/L (8-16) L 12/24/19 07:18 BUN 20.2 mg/dL (7-18) H 12/24/19 07:18 Creatinine 0.8 mg/dL (0.55-1.3) 12/24/19 07:18 Random Glucose 90 mg/dL (74-106) 12/24/19 07:18 Calcium 7.8 mg/dL (8.5-10.1) L 12/24/19 07:18 Total Bilirubin 0.5 mg/dL (0.2-1) 12/23/19 07:18 AST 33 U/L (15-37) 12/23/19 07:18 ALT 44 U/L (13-61) 12/23/19 07:18 Alkaline Phosphatase 86 U/L (45-117) 12/23/19 07:18 Total Protein 5.6 g/dl (6.4-8.2) L 12/23/19 07:18 Albumin 2.3 g/dl (3.4-5.0) L 12/23/19 07:18 CARDIAC ENZYMES Creatine Kinase 157 U/L (26-192) 12/24/19 07:18 Troponin I < 0.02 ng/ml (0.00-0.05) 12/21/19 13:03 Current Medications Generic Name Dose Route Start Last Admin Trade Name Freq PRN Reason Stop Dose Admin Acetaminophen 650 mg 12/23/19 18:06 12/23/19 18:26 Tylenol - PO 650 mg Q6H PRN Administration Fever Or Pain Atenolol 25 mg 12/24/19 10:00 Tenormin - PO DAILY [facility] Bacitracin 1 applic 12/22/19 10:00 12/23/19 12:04 Bacitracin - TP 1 applic DAILY [facility] Administration Famotidine 20 mg 12/23/19 15:30 12/23/19 15:35 Pepcid - PO 20 mg DAILY [facility] Administration Gabapentin 200 mg 12/23/19 22:00 12/24/19 06:18 Neurontin - PO 200 mg TID [facility] Administration Heparin Sodium (Porcine) 5,000 unit 12/23/19 22:00 12/24/19 06:17 Heparin - SQ 5,000 unit TID [facility] Administration Levothyroxine Sodium 100 mcg 12/24/19 07:00 12/24/19 06:31 Synthroid - PO 100 mcg ACBK [facility] Administration Nystatin 1 applic 12/22/19 11:30 12/23/19 21:54 Mycostatin Cream - TP 1 applic BID [facility] Administration Valsartan 80 mg 12/23/19 11:15 12/23/19 12:02 Diovan - PO 80 mg DAILY [facility] Administration Home Medications Medication Instructions Recorded Atenolol [Tenormin -] 20 mg PO DAILY 10/30/11 Levothyroxine [Synthroid -] 100 mcg PO DAILY 10/30/11 Valsartan [Diovan] 80 mg PO DAILY 10/30/11 Bacitracin - [Bacitracin Topical 1 applic TP DAILY #1 tube 12/24/19 Ointment -] Famotidine [Pepcid -] 20 mg PO DAILY #30 tablet 12/24/19 Gabapentin [Neurontin -] 200 mg PO TID #30 capsule 12/24/19 Nystatin Cream [Mycostatin Cream -] 1 applic TP BID #1 tube 12/24/19 Microbiology 12/21/19 13:55 Urine - Urine Clean Catch Urine Culture - Final Contaminated: Please Repeat ASSESSMENT AND PLAN: This patient is an 79yof with PMhx of spinal stenosis , RLE parasthesias, h ypothyroidism, fibromyalgia, and hiatal hernia who presented after a fall and inability to get up for 3 days. She was found to have Rhabdo. which resolved but having a swallowing difficulty now. # s/p Mechanical fall, due to spinal stenosis, OA , and deconditioning. patient is c/o having a low back pain, will start her on taper dose steroid. # s/p Rhabdo: CPK improved s/p IVF # s/p acute Transaminitis : normal now # s/p Volume depletion : improved , continue oral hydration # Hx of HTN: cont atenolol and resume valsartan # Hx of hypothyroidism: cont home synthroid. PT eval DVT PX Appreciate SW help. SNF placement pending. as per swallowing evaluation , recommending GI evaluation to r/o stricture vs stenosis, her GI is Dr Melton
[2019-12-24] MEDS: FAMOTIDINE 20 MG TABLET PO SCH (10:46)
[2019-12-24] MEDS: VALSARTAN 80 MG TABLET PO SCH (10:46)
[2019-12-24] MEDS: ATENOLOL 25 MG TABLET (FP) PO SCH (10:46)
[2019-12-24] MEDS: BACITRACIN 15 GM TUBE TOPICAL OINTMENT TP SCH (10:47)
[2019-12-24] MEDS: NYSTATIN 100,000 UNIT/GM TOPICAL CREAM 15 GM TUBE TP SCH ×2 (10:47→21:35)
--- NOTE | 2019-12-24 14:23 | PN ---
Physical Exam: SUBJECTIVE: Patient seen and examined. Pt complained of persistent bodily pain. Given 1 dose acetaminophen with codeine with good response. Stated that she has not had a BM. On rounds, pt expressed concern that she could not swallow. Pt felt nauseous and was retching during interview. OBJECTIVE: Vital Signs Period Temp Pulse Resp BP Sys/Brooke Pulse Ox Last 24 Hr 98.3 F-99.0 F 70-89 17-18 113-159/51-63 95-99 GENERAL: Awake, alert. In mild distress. HEENT: NCAT, EOMI, moist mucus membranes. CARDIAC: Regular rate and rhythm, no murmurs. ABDOMEN: Obese, nondistended, nontender to palpation. Normoactive bowel sounds. EXTREMITIES: Warm, well-perfused. Tender to palpation. NEURO: Hip flexion 2/5 b/l. Dorsiflexion and plantarflexion 5/5 b/l. Sensation intact in all extremities. SKIN: Scaly skin on b/l LE. RLE with ulcer that was not draining. Laboratory Last Values WBC 6.1 K/mm3 (4.0-10.0) 12/22/19 08:00 RBC 4.55 M/mm3 (3.60-5.2) 12/22/19 08:00 Hgb 13.0 GM/dL (10.7-15.3) 12/22/19 08:00 Hct 39.6 % (32.4-45.2) 12/22/19 08:00 MCV 87.1 fl (80-96) 12/22/19 08:00 MCH 28.5 pg (25.7-33.7) 12/22/19 08:00 MCHC 32.7 g/dl (32.0-36.0) 12/22/19 08:00 RDW 15.1 % (11.6-15.6) 12/22/19 08:00 Plt Count 219 K/MM3 (134-434) D 12/22/19 08:00 MPV 8.0 fl (7.5-11.1) 12/22/19 08:00 Absolute Neuts (auto) 6.6 K/mm3 (1.5-8.0) 12/21/19 13:03 Neutrophils % 80.4 % (42.8-82.8) 12/21/19 13:03 Lymphocytes % 5.8 % (8-40) L D 12/21/19 13:03 Monocytes % 10.9 % (3.8-10.2) H 12/21/19 13:03 Eosinophils % 1.9 % (0-4.5) 12/21/19 13:03 Basophils % 1.0 % (0-2.0) 12/21/19 13:03 Nucleated RBC % 0 % (0-0) 12/21/19 13:03 PTT (Actin FS) 31.7 SECONDS (25.2-36.5) 12/21/19 13:03 Sodium 141 mmol/L (136-145) 12/24/19 07:18 Potassium 4.4 mmol/L (3.5-5.1) 12/24/19 07:18 Chloride 110 mmol/L (98-107) H 12/24/19 07:18 Carbon Dioxide 25 mmol/L (21-32) 12/24/19 07:18 Anion Gap 6 MMOL/L (8-16) L 12/24/19 07:18 BUN 20.2 mg/dL (7-18) H 12/24/19 07:18 Creatinine 0.8 mg/dL (0.55-1.3) 12/24/19 07:18 Est GFR (CKD-EPI)AfAm 80.70 12/24/19 07:18 Est GFR (CKD-EPI)NonAf 69.63 12/24/19 07:18 Random Glucose 90 mg/dL (74-106) 12/24/19 07:18 Calcium 7.8 mg/dL (8.5-10.1) L 12/24/19 07:18 Phosphorus 2.6 mg/dL (2.5-4.9) 12/23/19 07:18 Magnesium 2.4 mg/dL (1.8-2.4) 12/23/19 07:18 Total Bilirubin 0.5 mg/dL (0.2-1) 12/23/19 07:18 Direct Bilirubin 0.2 mg/dL (0.0-0.2) 12/23/19 07:18 AST 33 U/L (15-37) 12/23/19 07:18 ALT 44 U/L (13-61) 12/23/19 07:18 Alkaline Phosphatase 86 U/L (45-117) 12/23/19 07:18 Creatine Kinase 157 U/L (26-192) 12/24/19 07:18 Creatine Kinase Index 0.7 % (0.0-5.0) 12/24/19 07:18 CK-MB (CK-2) 1.2 ng/mL (0.5-3.6) 12/24/19 07:18 Troponin I < 0.02 ng/ml (0.00-0.05) 12/21/19 13:03 Total Protein 5.6 g/dl (6.4-8.2) L 12/23/19 07:18 Albumin 2.3 g/dl (3.4-5.0) L 12/23/19 07:18 Triglycerides 118 mg/dL (0-150) 12/21/19 13:03 Cholesterol 222 mg/dL (50-200) H 12/21/19 13:03 Total LDL Cholesterol 136 mg/dL (5-100) H 12/21/19 13:03 HDL Cholesterol 78 mg/dL (40-60) H 12/21/19 13:03 TSH 4.10 uIU/ml (0.358-3.74) H 12/21/19 13:03 Free T4 1.24 ng/dl (0.76-1.46) 12/21/19 13:03 Urine Color Yellow 12/21/19 13:55 Urine Appearance Cloudy 12/21/19 13:55 Urine pH 5.0 (5.0-8.0) 12/21/19 13:55 Ur Specific [place] 1.024 (1.010-1.035) 12/21/19 13:55 Urine Protein 1+ (NEGATIVE) H 12/21/19 13:55 Urine Glucose (UA) Negative (NEGATIVE) 12/21/19 13:55 Urine Ketones Negative (NEGATIVE) 12/21/19 13:55 Urine Blood 2+ (NEGATIVE) H 12/21/19 13:55 Urine Nitrite Negative (NEGATIVE) 12/21/19 13:55 Urine Bilirubin Negative (NEGATIVE) 12/21/19 13:55 Urine Urobilinogen 0.2 mg/dL (0.2-1.0) 12/21/19 13:55 Ur Leukocyte Esterase Trace (NEGATIVE) 12/21/19 13:55 Urine WBC (Auto) 48 /uL (0-25.8) 12/21/19 13:55 Urine RBC (Auto) 151 /uL (0-23.9) 12/21/19 13:55 Urine Casts (Auto) 1 /uL (0-3.1) 12/21/19 13:55 U Epithel Cells (Auto) 14 /uL (0-25.1) 12/21/19 13:55 Urine Crystals (Auto) None /hpf 12/21/19 13:55 Urine Bacteria (Auto) 540 /uL (0-1359) 12/21/19 13:55 COVID-19 (NAHUN) Not detected (Not Detected) 12/21/19 15:10 Blood Type Cancelled 12/21/19 13:03 Antibody Screen Cancelled 12/21/19 13:03 Active Medications Acetaminophen (Tylenol -) 650 mg PO Q6H PRN PRN Reason: Fever Or Pain Last Admin: 12/23/19 18:26 Dose: 650 mg Documented by: Atenolol (Tenormin -) 25 mg PO DAILY [facility] Last Admin: 12/24/19 10:46 Dose: 25 mg Documented by: Bacitracin (Bacitracin -) 1 applic TP DAILY [facility] Last Admin: 12/24/19 10:47 Dose: 1 applic Documented by: Famotidine (Pepcid -) 20 mg PO DAILY [facility] Last Admin: 12/24/19 10:46 Dose: 20 mg Documented by: Gabapentin (Neurontin -) 200 mg PO TID [facility] Last Admin: 12/24/19 14:36 Dose: 200 mg Documented by: Heparin Sodium (Porcine) (Heparin -) 5,000 unit SQ TID [facility] Last Admin: 12/24/19 14:35 Dose: 5,000 unit Documented by: Levothyroxine Sodium (Synthroid -) 100 mcg PO ACBK [facility] Last Admin: 12/24/19 06:31 Dose: 100 mcg Documented by: Nystatin (Mycostatin Cream -) 1 applic TP BID [facility] Last Admin: 12/24/19 10:47 Dose: 1 applic Documented by: Prednisone (Deltasone -) 30 mg PO DAILY [facility] Stop: 12/28/19 09:59 Prednisone (Deltasone -) 20 mg PO DAILY [facility] Stop: 12/30/19 09:59 Prednisone (Deltasone -) 10 mg PO DAILY [facility] Stop: 01/01/20 09:59 Prednisone (Deltasone -) 40 mg PO DAILY [facility] Stop: 12/25/19 10:01 Last Admin: 12/24/19 16:03 Dose: 40 mg Documented by: Valsartan (Diovan -) 80 mg PO DAILY [facility] Last Admin: 12/24/19 10:46 Dose: 80 mg Documented by: ASSESSMENT/PLAN: 79 yo F with PMH HTN, hypothyroidism, fibromyalgia, spinal stenoisis, RLE parasthesias and hiatal hernia presented to ED s/p mechanical fall. She was admitted for mechanical fall secondary to spinal stenosis and for rhabdomyolysis. Dysphagia secondary to esophageal spasm vs. other motility disorder -EGD/[facility] in 2012 -c/w pepcid for acid reflux -Will pursue with esophagram. May need esophageal manometry outpatient. -Speech and swallow and GI consulted. Mechanical fall secondary to spinal stenosis and deconditioning -CT without acute pathology -c/w physical therapy -will benefit from short term rehab Rhabdomyolysis, improved -CK improved -Cr at baseline, no kidney failure as a result of rhabdo Gluteal ulcer, ulcer on RLE -c/w bacitracin, nystatin cream -continue to monitor Fibromyalgia -c/w gabapentin 200mg TID HTN -continue home BP meds: Valsartan 80mg qD, Atenolol 20mg qD -monitor BP Hypothyroidism -c/w home dose levothyroxine 100mcg qD Ppx -DVT: SQH -GI: pepcid FEN -no standing fluids -replete electrolytes -gluten restricted diet, low sodium, low fat. Dispo: continue to monitor in med-surg Visit type - Emergency Visit Emergency Visit: Yes ED Registration Date: 12/21/19 Care time: The patient presented to the Emergency Department on the above date and was hospitalized for further evaluation of their emergent condition. - New Patient This patient is new to me today: No - Critical Care Critical Care patient: No - Medication Review Med list reviewed for High Risk Meds patients 65 and older: Yes ATTENDING PHYSICIAN STATEMENT I saw and evaluated the patient. I reviewed the resident's note and discussed the case with the resident. I agree with the resident's findings and plan as documented. SUBJECTIVE: OBJECTIVE: ASSESSMENT AND PLAN:
--- NOTE | 2019-12-24 14:33 | CONSULT ---
Admitting History and Physical - Admission History of Present Illness: 79 yo F with PMH HTN, hypothyroidism, fibromyalgia, spinal stenoisis, RLE parasthesias and hiatal hernia presented to ED s/p mechanical fall. She was admitted for mechanical fall secondary to spinal stenosis and rhabdomyolysis. Mechanical fall secondary to spinal stenosis and deconditioning Pt on Gluten restricted reg diet, thin liquids. C/o Acid reflux Selected Entries 12/23/19 12/23/19 12/24/19 15:00 18:00 01:48 Breakfast 75% Diet Tolerated Well Well Lunch 75% Supper 75% Temperature 98.5 F Pulse Rate 71 Blood Pressure 125/63 O2 Sat by Pulse 96 Oximetry (%) Oxygen Delivery Method 12/24/19 12/24/19 05:00 09:00 Breakfast Diet Tolerated Lunch Supper Temperature 99 F 98.3 F Pulse Rate 70 76 Blood Pressure 121/60 119/51 L O2 Sat by Pulse 97 99 Oximetry (%) Oxygen Delivery Room Air Method Laboratory Tests 12/22/19 08:00 WBC 6.1 Laboratory Tests 12/21/19 15:10 COVID-19 (NAHUN) Not detected Pt reports that she was eating chicken and rice today and all of the sudden it wouldnt go down, and she had pain in her chest. She couldnt drink to wash it down. She reports that this happens sporadically and feels it is because she is "sensitive" to something in the food. She doesnt feel like the solid food gets stuck and she feels she chews well. She reports symptoms of heartburn daily and has not seen a Nuclear Cardiology Technologist or had any testing. Upon review of swallowing behaviors, she drinks cocoa each morning, and then water throughout the day. She is oob in a w/c all day, and denies reclining after she eats. Pepcid ordered 12/22 for c/o heartburn History Source: Patient Limitations to Obtaining History: No Limitations - Past Medical History ...: No - Smoking History Smoking history: Never smoked Aproximately how many cigarettes per day: 0 - Alcohol/Substance Use Hx Alcohol Use: No History - Admission Reason For Visit: MORBID OBESITY RHABDOMYOLYSIS ELEVATED LIVER ENZYM - Diagnostics X-ray: Report Reviewed - General Mental Status: Alert and Oriented, Awake and Alert, Able to Follow Commands Attention: Intact Ability to Follow Directions: Excellent Head/Neck Control: WFL - Hearing Hearing: Normal Speech Evaluation - Communication Primary Language: KINYARWANDA Communication: Yes: Within Normal Limits Oral Expression Ability: Yes: No Impairment - Speech Production Able to Make Needs Known: Yes: WNL Intelligibility: Yes: WNL - Speech Characteristics Voice Loudness: Normal Voice Pitch: Yes: Normal Voice Phonatory-based Quality: Yes: Normal Speech Pattern: Normal Speech Clarity: < 100% Nasal Resonance: Normal Articulation: Yes: Precise Rate of Speech: Intact - Language/Auditory Comprehension Follows: Yes: 2 Stage Simple Commands Observation: Able to respond to yes/no queries: Yes, Comprehends Conversational Speech: Yes - Language/Verbal Expression Able to Respond to Simple Queries: Yes: WNL Able to Communicate Wants and Needs: Yes: WNL Functional Communication Status: Yes: WNL - Memory/Perception petroleum terminal plant operator Memory: Yes: WNL Short Term Memory: Yes: WNL - Swallow Evaluation/Bedside Assessment Current Nutritional Intake: Regular, Thin Liquids Oral Secretions: Yes: WFL Dentition: Yes: Adequate Facial Symmetry at Rest: Symmetrical Facial Symmetry on Retraction: Symmetrical Facial Movement: Controlled Sensation: Normal Against Resistance Opening: Normal Against Resistance Closing: Normal Pucker Lips: Normal Smile: Normal Lingual Movement: Normal, Symmetric Lingual Speed of Movement: Normal Lingual Movement Strgth Against Opposition: Normal Lingual Movement Characteristics: Normal Laryngeal Elevation: WFL Laryngeal Movement: Able to Palpate Rate of Intake: WFL Bolus Size: WFL Labial Seal: WFL Chewing: WFL Oral Prep Time: WFL A-P Transit: WFL Pocketing: None Timing of Swallow: WFL Coughing/Throat Clear: No Change in Voice: No Recommendations - Speech Evaluation, Impression/Plan Impression: r/o GERD/esophageal dysphagia including esophageal spasm/stricture/ etc. Pt refusing temporary diet downgrade. - Dysphagia Impressions/Plan Swallowing Skills: Impaired Dysphagia Impressions: Ongoing Evaluation *Silent aspiration: cannot be R/O at bedside Recommendations: GI Consult (suspect esophageal dysphagia. Daily heatburn. Intermittent esoph spasm vs fleeting food impaction?), Other (Advised to alternate solids with liquids GERD precautions Upright for atleast 1 hour after meals. Avoid PO intake without 2-3 hours of bedtime Eliminate caffeine, carbonation, citrus, tomatoes, etc)
[2019-12-24] MEDS ORDERED: predniSONE 20 MG TABLET (UD) PO SCH (16:00)
[2019-12-24] MEDS: predniSONE 20 MG TABLET (UD) PO SCH (16:03)
--- NOTE | 2019-12-24 16:22 | CON.GI ---
Consult Consult Specialty:: GI: For Dr. Lenz who resumes care 12/23 Referred by:: [facility] Reason for Consultation:: Dysphagia and chest pain - History of Present Illness Chief Complaint: "Lost strength in her legs" History of Present Illness: 79F admitted after "losing strength in her legs and melting to the floor". Mian sidhu. Called to evaluate dysphagia. She describes intermittent episodes of chest tightness while eating that is followed by momentary inability to swallow. Has been occurring for years. Spisodes can be fleeting, lasting seconds, to lingering for a few minutes. She vomited once due to this. She has been followed by Dr. Maria Esther lenz. 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 He performed colonoscopy 05/04/12. It revealed an 8mm sessile polyp at the hepatic flexure, mild diverticulosis universally and minimally enlarged hemorrhoids. There is no family history of colorectal cancer. Her paternal grandmother had stomach cancer and her maternal GM of pancreatic cancer. She was able to swallow water during my evaluation without difficulty. - History Source History Provided By: Patient, Medical Record Limitations to Obtaining History: No Limitations - Past Medical History Cardio/Vascular: Yes: CAD, HTN, Hyperlipdemia Gastrointestinal: Yes: Peptic Ulcer Disease Hepatobiliary: Yes: Cholelithiasis ...: No Endocrine: Yes: Hypothyroidism Additional Medical History: Fuch's Disease - Past Surgical History Past Surgical History: Yes: Cataract Removal (bilaterally) - Alcohol/Substance Use Hx Alcohol Use: No History of Substance Use: reports: None - Smoking History Smoking history: Never smoked Aproximately how many cigarettes per day: 0 - Social History Usual Living Arrangement: With Spouse ADL: Independent Occupation: Retired Teacher Place of : Other ([place]) History of Recent Travel: No Home Medications - Allergies Allergies/Adverse Reactions: Allergies Allergy/AdvReac Type Severity Reaction Status Date / Time apple Allergy Swelling Verified 12/21/19 13:04 nut AdvReac Unknown Difficulty Uncoded 12/23/19 15:07 Breathing - Home Medications Home Medications: Ambulatory Orders Atenolol [Tenormin -] 20 mg PO DAILY 10/30/11 Levothyroxine [Synthroid -] 100 mcg PO DAILY 10/30/11 Valsartan [Diovan] 80 mg PO DAILY 10/30/11 Bacitracin - [Bacitracin Topical Ointment -] 1 applic TP DAILY #1 tube 12/24/19 Famotidine [Pepcid -] 20 mg PO DAILY #30 tablet 12/24/19 Gabapentin [Neurontin -] 200 mg PO TID #30 capsule 12/24/19 Nystatin Cream [Mycostatin Cream -] 1 applic TP BID #1 tube 12/24/19 Family Medical History Family Hx Cancer: Grandmother (maternal) (Pancreatic cancer), Grandmother (paternal) (Stomach cancer) Family Hx Nuerologic Problems: Father (: 90: CVA) Other Family History: Mother: : 97. on brother : unknown cause, 1 bother w/ CAD. No children Review of Systems - Review of Systems Constitutional: denies: Chills Cardiovascular: reports: Chest Pain Respiratory: denies: Cough, SOB Gastrointestinal: reports: Dysphagia. denies: Abdominal Pain, Constipation, Diarrhea Physical Exam-GI Vital Signs: Vital Signs Temperature 98.8 F 12/24/19 13:00 Pulse Rate 74 12/24/19 13:00 Respiratory Rate 18 12/24/19 13:00 Blood Pressure 129/51 L 12/24/19 13:00 O2 Sat by Pulse Oximetry (%) 97 12/24/19 13:00 Constitutional: Yes: Calm Eyes: No: Sclera Icterus Cardiovascular: Yes: Regular Rate and Rhythm Respiratory: Yes: Diminished (at bases bilaterally with poor insp effort) Gastrointestinal Inspection: Yes: Other (Large pannus limiting evaluation). No: Distention ...Auscultate: Yes: Normoactive Bowel Sounds ...Palpate: Yes: Soft. No: Tenderness ...Percussion: No: Tympanitic Extremities: Yes: Other (Chronic stasis changes B/L feet) Edema: Yes Edema: LLE: 2+, RLE: 2+ Neurological: Yes: Alert Labs: CBC, BMP 12/22/19 08:00 12/24/19 07:18 Hepatic Panel Total Bilirubin 0.5 mg/dL (0.2-1) 12/23/19 07:18 Direct Bilirubin 0.2 mg/dL (0.0-0.2) 12/23/19 07:18 AST 33 U/L (15-37) 12/23/19 07:18 ALT 44 U/L (13-61) 12/23/19 07:18 Alkaline Phosphatase 86 U/L (45-117) 12/23/19 07:18 Albumin 2.3 g/dl (3.4-5.0) L 12/23/19 07:18 Problem List - Problems (1) Dysphagia Assessment/Plan: Chronic intermittent episodes of dysphagia to liquids and solids that resolves without intervention. By description, it sounds as though Ms. Jeffries may be experiencing episodes of esophageal spasm or alternate motility disorder. Currently asymptomatic Advise: Esophgram to further evaluate esophageal anatomy Pending findings from the esophagram, outpatient referral for esophageal manometry could be considered Dr. Lenz resumes care 12/23 Code(s): R13.10 - DYSPHAGIA, UNSPECIFIED
[2019-12-24] MEDS ORDERED: INSULIN (NOVOLOG) ASPART 100 UNITS/ML 10ML VIAL ONE (17:23)
[2019-12-25] MEDS: HEPARIN NA (PORCINE) 5,000 UNITS/ML 1ML VIAL SQ SCH ×3 (05:52→21:19)
[2019-12-25] MEDS: GABAPENTIN 100 MG CAPSULE PO SCH ×3 (05:52→21:19)
[2019-12-25] MEDS: LEVOTHYROXINE NA 100 MCG TABLET (FP) PO SCH (06:06)
[2019-12-25 09:41] LABS: BLOOD UREA NITROGEN 18.1 mg/dL (7-18); CALCIUM 8.5 mg/dL (8.5-10.1); CREATININE 0.8 mg/dL (0.55-1.3); POTASSIUM 4.8 mmol/L (3.5-5.1)
[2019-12-25] MEDS: NYSTATIN 100,000 UNIT/GM TOPICAL CREAM 15 GM TUBE TP SCH ×2 (10:51→21:19)
[2019-12-25] MEDS: BACITRACIN 15 GM TUBE TOPICAL OINTMENT TP SCH (10:51)
[2019-12-25] MEDS: ATENOLOL 25 MG TABLET (FP) PO SCH (10:52)
[2019-12-25] MEDS: predniSONE 20 MG TABLET (UD) PO SCH (10:52)
[2019-12-25] MEDS: FAMOTIDINE 20 MG TABLET PO SCH (10:52)
[2019-12-25] MEDS: VALSARTAN 80 MG TABLET PO SCH (10:53)
--- NOTE | 2019-12-25 12:54 | PN ---
Progress Note, ASSOCIATE MEDIA PLANNER - Note Progress Note: Selected Entries 12/24/19 12/24/19 12/24/19 01:48 05:00 09:00 Breakfast Diet Tolerated Lunch Supper Temperature Pulse Rate Blood Pressure O2 Sat by Pulse 96 97 99 Oximetry (%) Oxygen Delivery Room Air Method 12/24/19 12/24/19 12/24/19 13:00 15:00 18:01 Breakfast 75% Diet Tolerated Well Lunch 75% Supper Temperature Pulse Rate Blood Pressure O2 Sat by Pulse 97 98 Oximetry (%) Oxygen Delivery Method 12/24/19 12/24/19 12/24/19 21:00 22:00 22:13 Breakfast Diet Tolerated Well Lunch Supper 75% Temperature Pulse Rate Blood Pressure O2 Sat by Pulse 96 96 Oximetry (%) Oxygen Delivery Room Air Method 12/24/19 12/25/19 12/25/19 23:00 02:09 06:00 Breakfast Diet Tolerated Well Lunch Supper Temperature 98.1 F 98 F Pulse Rate 76 74 Blood Pressure 150/62 146/77 O2 Sat by Pulse Oximetry (%) Oxygen Delivery Method 12/25/19 09:00 Breakfast Diet Tolerated Lunch Supper Temperature 98.2 F Pulse Rate 74 Blood Pressure 142/65 O2 Sat by Pulse Oximetry (%) Oxygen Delivery Method Appreciate GI consult. Tolerated pureed diet yesterday. Pending results of esophagram. Reviewed with pt need to alternate solids with liquids while eating, as she normally waits until the end of the meal to drink.
--- NOTE | 2019-12-25 16:36 | PN ---
Physical Exam: SUBJECTIVE: Patient seen and examined. Pt had episode of dysphagia yesterday. Tolerated pureed diet. Was made NPO after midnight for esophagram. Pt feels well. Stated that she felt stronger today. OBJECTIVE: Vital Signs Period Temp Pulse Resp BP Sys/Brooke Pulse Ox Last 24 Hr 98 F-99.3 F 71-77 18-18 132-161/62-77 93-98 GENERAL: Awake, alert. In mild distress. HEENT: NCAT, EOMI, moist mucus membranes. CARDIAC: Regular rate and rhythm, no murmurs. ABDOMEN: Obese, nondistended, nontender to palpation. Normoactive bowel sounds. EXTREMITIES: Warm, well-perfused. Tender to palpation. NEURO: Hip flexion 3/5 b/l. Dorsiflexion and plantarflexion 5/5 b/l. Sensation intact in all extremities. SKIN: Scaly skin on b/l LE. RLE with ulcer that was not draining. CBC, BMP 12/22/19 08:00 12/25/19 07:46 Active Medications Acetaminophen (Tylenol -) 650 mg PO Q6H PRN PRN Reason: Fever Or Pain Last Admin: 12/23/19 18:26 Dose: 650 mg Documented by: Atenolol (Tenormin -) 25 mg PO DAILY [facility] Last Admin: 12/25/19 10:52 Dose: 25 mg Documented by: Bacitracin (Bacitracin -) 1 applic TP DAILY [facility] Last Admin: 12/25/19 10:51 Dose: 1 applic Documented by: Cyclobenzaprine HCl (Flexeril -) 5 mg PO BID PRN PRN Reason: PAIN LEVEL 6-10 Famotidine (Pepcid -) 20 mg PO DAILY [facility] Last Admin: 12/25/19 10:52 Dose: 20 mg Documented by: Gabapentin (Neurontin -) 200 mg PO TID [facility] Last Admin: 12/25/19 14:20 Dose: 200 mg Documented by: Heparin Sodium (Porcine) (Heparin -) 5,000 unit SQ TID [facility] Last Admin: 12/25/19 14:20 Dose: 5,000 unit Documented by: Levothyroxine Sodium (Synthroid -) 100 mcg PO ACBK [facility] Last Admin: 12/25/19 06:06 Dose: 100 mcg Documented by: Nystatin (Mycostatin Cream -) 1 applic TP BID [facility] Last Admin: 10/07/20 10:51 Dose: 1 applic Documented by: Prednisone (Deltasone -) 30 mg PO DAILY [facility] Stop: 12/28/19 09:59 Prednisone (Deltasone -) 20 mg PO DAILY [facility] Stop: 12/30/19 09:59 Prednisone (Deltasone -) 10 mg PO DAILY [facility] Stop: 01/01/20 09:59 Valsartan (Diovan -) 80 mg PO DAILY [facility] Last Admin: 12/25/19 10:53 Dose: 80 mg Documented by: ASSESSMENT/PLAN: ASSESSMENT/PLAN: 79 yo F with PMH HTN, hypothyroidism, fibromyalgia, spinal stenoisis, RLE parasthesias and hiatal hernia presented to ED s/p mechanical fall. She was admitted for mechanical fall secondary to spinal stenosis and for rhabdomyoly sis. Dysphagia secondary to esophageal spasm vs. other motility disorder -EGD/[facility] in 2012 -c/w pepcid for acid reflux -Esophagram with evidence of esophageal dysmotility and hiatal hernia. -c/w pureed diet for now. Pt was educated in alternating solids and liquids during meals. -Speech and swallow and GI consulted. Mechanical fall secondary to spinal stenosis and deconditioning -CT without acute pathology -c/w physical therapy -will benefit from short term rehab Rhabdomyolysis, improved -CK improved -Cr at baseline, no kidney failure as a result of rhabdo Gluteal ulcer, ulcer on RLE -c/w bacitracin, nystatin cream -continue to monitor Fibromyalgia -c/w gabapentin 200mg TID HTN -continue home BP meds: Valsartan 80mg qD, Atenolol 20mg qD -monitor BP Hypothyroidism -c/w home dose levothyroxine 100mcg qD Ppx -DVT: SQH -GI: pepcid FEN -no standing fluids -replete electrolytes -pureed diet Dispo: continue to monitor in med-surg Visit type - Emergency Visit Emergency Visit: Yes ED Registration Date: 12/21/19 Care time: The patient presented to the Emergency Department on the above date and was hospitalized for further evaluation of their emergent condition. - New Patient This patient is new to me today: No - Critical Care Critical Care patient: No - Medication Review Med list reviewed for High Risk Meds patients 65 and older: Yes ATTENDING PHYSICIAN STATEMENT I saw and evaluated the patient. I reviewed the resident's note and discussed the case with the resident. I agree with the resident's findings and plan as documented. SUBJECTIVE: OBJECTIVE: ASSESSMENT AND PLAN:
--- NOTE | 2019-12-25 18:43 | PN ---
Teaching Attending Note Name of Resident: Deb Garcia ATTENDING PHYSICIAN STATEMENT I saw and evaluated the patient. I reviewed the resident's note and discussed the case with the resident. I agree with the resident's findings and plan as documented. SUBJECTIVE: feels better , as per patient is able to move now OBJECTIVE: Vital Signs Temperature 98.3 F 12/25/19 14:00 Pulse Rate 74 12/25/19 14:00 Respiratory Rate 18 12/25/19 14:00 Blood Pressure 138/68 12/25/19 14:00 O2 Sat by Pulse Oximetry (%) 95 12/25/19 14:00 PE:per resident's note LEs: swelling; lymphadema bl CBCD WBC 6.1 K/mm3 (4.0-10.0) 12/22/19 08:00 RBC 4.55 M/mm3 (3.60-5.2) 12/22/19 08:00 Hgb 13.0 GM/dL (10.7-15.3) 12/22/19 08:00 Hct 39.6 % (32.4-45.2) 12/22/19 08:00 MCV 87.1 fl (80-96) 12/22/19 08:00 MCHC 32.7 g/dl (32.0-36.0) 12/22/19 08:00 RDW 15.1 % (11.6-15.6) 12/22/19 08:00 Plt Count 219 K/MM3 (134-434) D 12/22/19 08:00 MPV 8.0 fl (7.5-11.1) 12/22/19 08:00 CMP Sodium 140 mmol/L (136-145) 12/25/19 07:46 Potassium 4.8 mmol/L (3.5-5.1) 12/25/19 07:46 Chloride 109 mmol/L (98-107) H 12/25/19 07:46 Carbon Dioxide 22 mmol/L (21-32) 12/25/19 07:46 Anion Gap 9 MMOL/L (8-16) 12/25/19 07:46 BUN 18.1 mg/dL (7-18) H 12/25/19 07:46 Creatinine 0.8 mg/dL (0.55-1.3) 12/25/19 07:46 Random Glucose 104 mg/dL (74-106) 12/25/19 07:46 Calcium 8.5 mg/dL (8.5-10.1) 12/25/19 07:46 Total Bilirubin 0.5 mg/dL (0.2-1) 12/23/19 07:18 AST 33 U/L (15-37) 12/23/19 07:18 ALT 44 U/L (13-61) 12/23/19 07:18 Alkaline Phosphatase 86 U/L (45-117) 12/23/19 07:18 Total Protein 5.6 g/dl (6.4-8.2) L 12/23/19 07:18 Albumin 2.3 g/dl (3.4-5.0) L 12/23/19 07:18 CARDIAC ENZYMES Creatine Kinase 157 U/L (26-192) 12/24/19 07:18 Troponin I < 0.02 ng/ml (0.00-0.05) 12/21/19 13:03 Current Medications Generic Name Dose Route Start Last Admin Trade Name Freq PRN Reason Stop Dose Admin Acetaminophen 650 mg 12/23/19 18:06 12/23/19 18:26 Tylenol - PO 650 mg Q6H PRN Administration Fever Or Pain Atenolol 25 mg 12/24/19 10:00 12/25/19 10:52 Tenormin - PO 25 mg DAILY [facility] Administration Bacitracin 1 applic 12/22/19 10:00 12/25/19 10:51 Bacitracin - TP 1 applic DAILY [facility] Administration Cyclobenzaprine HCl 5 mg 12/25/19 13:19 Flexeril - PO BID PRN PAIN LEVEL 6-10 Famotidine 20 mg 12/23/19 15:30 12/25/19 10:52 Pepcid - PO 20 mg DAILY [facility] Administration Gabapentin 200 mg 12/23/19 22:00 12/25/19 14:20 Neurontin - PO 200 mg TID [facility] Administration Heparin Sodium (Porcine) 5,000 unit 12/23/19 22:00 12/25/19 14:20 Heparin - SQ 5,000 unit TID [facility] Administration Levothyroxine Sodium 100 mcg 12/24/19 07:00 12/25/19 06:06 Synthroid - PO 100 mcg ACBK [facility] Administration Nystatin 1 applic 12/22/19 11:30 12/25/19 10:51 Mycostatin Cream - TP 1 applic BID [facility] Administration Prednisone 30 mg 12/26/19 10:00 Deltasone - PO 12/28/19 09:59 DAILY [facility] Prednisone 20 mg 12/28/19 10:00 Deltasone - PO 12/30/19 09:59 DAILY [facility] Prednisone 10 mg 12/30/19 10:00 Deltasone - PO 01/01/20 09:59 DAILY [facility] Valsartan 80 mg 12/23/19 11:15 12/25/19 10:53 Diovan - PO 80 mg DAILY [facility] Administration Home Medications Medication Instructions Recorded Atenolol [Tenormin -] 20 mg PO DAILY 10/30/11 Levothyroxine [Synthroid -] 100 mcg PO DAILY 10/30/11 Valsartan [Diovan] 80 mg PO DAILY 10/30/11 Bacitracin - [Bacitracin Topical 1 applic TP DAILY #1 tube 12/24/19 Ointment -] Famotidine [Pepcid -] 20 mg PO DAILY #30 tablet 12/24/19 Gabapentin [Neurontin -] 200 mg PO TID #30 capsule 12/24/19 Nystatin Cream [Mycostatin Cream -] 1 applic TP BID #1 tube 12/24/19 ASSESSMENT AND PLAN: This patient is an 79yof with PMhx of spinal stenosis , RLE parasthesias, hypothyroidism, fibromyalgia, and hiatal hernia who presented after a fall and inability to get up for 3 days. She was found to have Rhabdo. which resolved but having a swallowing difficulty now. # s/p Mechanical fall, due to spinal stenosis, OA , and deconditioning. patient is c/o having a low back pain improving on oral steroid , will continue taper dose steroid. # s/p Rhabdo: CPK improved s/p IVF # s/p acute Transaminitis : normal now # s/p Volume depletion : improved , continue oral hydration # Hx of HTN: cont atenolol and resume valsartan # Hx of hypothyroidism: cont home synthroid. PT eval DVT PX Appreciate SW help. SNF placement pending. going for esophagram to r/o stricture vs stenosis, her GI is Dr Melton
[2019-12-26] MEDS: HEPARIN NA (PORCINE) 5,000 UNITS/ML 1ML VIAL SQ SCH ×3 (06:39→21:56)
[2019-12-26] MEDS: GABAPENTIN 100 MG CAPSULE PO SCH ×3 (06:39→21:56)
[2019-12-26] MEDS: LEVOTHYROXINE NA 100 MCG TABLET (FP) PO SCH (06:39)
[2019-12-26 08:32] LABS: HEMATOCRIT 40.6 % (32.4-45.2); HEMOGLOBIN 13.2 GM/dL (10.7-15.3); MCH 28.2 pg (25.7-33.7); MCHC 32.6 g/dl (32.0-36.0); MEAN CELL VOLUME 86.6 fl (80-96); MEAN PLT VOLUME 7.6 fl (7.5-11.1); PLATELET COUNT 227 K/MM3 (134-434); RBC 4.69 M/mm3 (3.60-5.2); RDW 14.9 % (11.6-15.6); WHITE BLOOD COUNT 6.3 K/mm3 (4.0-10.0)
[2019-12-26 09:01] LABS: BLOOD UREA NITROGEN 18.4 mg/dL (7-18); CALCIUM 8.7 mg/dL (8.5-10.1); CREATININE 0.9 mg/dL (0.55-1.3); POTASSIUM 4.2 mmol/L (3.5-5.1)
[2019-12-26] MEDS ORDERED: PT OWN MED DRAWER 7, Y5N ONE (09:06)
[2019-12-26] MEDS: FAMOTIDINE 20 MG TABLET PO SCH (09:22)
[2019-12-26] MEDS: ATENOLOL 25 MG TABLET (FP) PO SCH (09:22)
[2019-12-26] MEDS: BACITRACIN 15 GM TUBE TOPICAL OINTMENT TP SCH (09:23)
[2019-12-26] MEDS: predniSONE 10 MG TABLET (UD) PO SCH (09:23)
[2019-12-26] MEDS: NYSTATIN 100,000 UNIT/GM TOPICAL CREAM 15 GM TUBE TP SCH ×2 (09:24→21:56)
[2019-12-26] MEDS: VALSARTAN 80 MG TABLET PO SCH (09:24)
[2019-12-26] MEDS: CYCLOBENZAPRINE HCL 10 MG TABLET (FP) PO PRN ×2 (09:26→21:56)
--- NOTE | 2019-12-26 10:23 | PN ---
Progress Note, FIRER HELPER - Note Progress Note: Selected Entries 12/24/19 12/24/19 12/24/19 01:48 05:00 09:00 Breakfast Diet Tolerated Lunch Supper Temperature Pulse Rate Blood Pressure O2 Sat by Pulse 96 97 99 Oximetry (%) Oxygen Delivery Room Air Method 12/24/19 12/24/19 12/24/19 13:00 15:00 18:01 Breakfast 75% Diet Tolerated Well Lunch 75% Supper Temperature Pulse Rate Blood Pressure O2 Sat by Pulse 97 98 Oximetry (%) Oxygen Delivery Method 12/24/19 12/24/19 12/24/19 21:00 22:00 22:13 Breakfast Diet Tolerated Well Lunch Supper 75% Temperature Pulse Rate Blood Pressure O2 Sat by Pulse 96 96 Oximetry (%) Oxygen Delivery Room Air Method 12/24/19 12/25/19 12/25/19 23:00 02:09 06:00 Breakfast Diet Tolerated Well Lunch Supper Temperature 98.1 F 98 F Pulse Rate 76 74 Blood Pressure 150/62 146/77 O2 Sat by Pulse Oximetry (%) Oxygen Delivery Method 12/25/19 09:00 Breakfast Diet Tolerated Lunch Supper Temperature 98.2 F Pulse Rate 74 Blood Pressure 142/65 O2 Sat by Pulse Oximetry (%) Oxygen Delivery Method Selected Entries 12/25/19 12/25/19 12/26/19 15:00 18:00 02:00 Breakfast 75% Lunch 75% Supper 75% Temperature 98.0 F Pulse Rate 63 Blood Pressure 145/57 L 12/26/19 12/26/19 06:00 09:10 Breakfast Lunch Supper Temperature 98.1 F 98.3 F Pulse Rate 65 67 Blood Pressure 140/62 168/68 Laboratory Tests 12/26/19 08:15 WBC 6.3 esophagram- Esophageal dysmotility Diet advanced to reg/thin liquids Pt seen sitting on side of bed. She reported tolerating eggs well, alternating with sips of liquid. Rec-HOB elevated to 90 mealtime and for an hour after meals. Alternate solids with liquids while eating, (as she normally waits until the end of the meal to drink) and at end of meal. GERD precautions
[2019-12-26] MEDS ORDERED: VALSARTAN 80 MG TABLET PO SCH (10:54)
--- NOTE | 2019-12-26 11:46 | PN.GI ---
GI Progress Note Subjective: GI NOte: Dr. Stock's consult is appreciated. Esophagram reveals esophageal dysmotility but no stricture or evidence of achalasia. She has never had to regurgitate anything . LFTs have normalized rapidly suggesting stone or sludge passage - Objective Vital Signs: Vital Signs Temperature 98.3 F 12/26/19 09:10 Pulse Rate 67 12/26/19 09:10 Respiratory Rate 18 12/26/19 09:10 Blood Pressure 168/68 12/26/19 09:10 O2 Sat by Pulse Oximetry (%) 97 12/26/19 09:54 Laboratory Tests 12/21/19 12/21/19 12/23/19 13:03 15:10 07:18 Hgb 14.4 Total Bilirubin 0.5 Direct Bilirubin 0.2 AST 33 ALT 44 Alkaline Phosphatase 86 COVID-19 (NAHUN) Not detected Constitutional: Calm ...Auscultate: Yes: Normoactive Bowel Sounds ...Palpate: Yes: Soft, Other (nontender) Labs: CBC, BMP 12/26/19 08:15 12/26/19 08:15 Assessment/Plan Impression: - Dypshagia due to esophageal dysmotlity - Abnormal LFTs with rapid normalization suggests passage of a stone or sludge Plan -- Instructed to cut food into small pieces,to avoid tough meats,to chew well and to wash down all food with liquids -- Sonogram of the GB and bile duct to exclude bile duct obstruction -- Advised to followup in the office for repeat colonoscopy for cancer screening Problem List - Problems (1) Dysphagia Code(s): R13.10 - DYSPHAGIA, UNSPECIFIED (2) Diverticulosis Code(s): K57.90 - DVRTCLOS OF INTEST, PART UNSP, W/O PERF OR ABSCESS W/O BLEED (3) Hiatal hernia Code(s): K44.9 - DIAPHRAGMATIC HERNIA WITHOUT OBSTRUCTION OR GANGRENE (4) Elevated liver enzymes Code(s): R74.8 - ABNORMAL LEVELS OF OTHER SERUM ENZYMES (5) Morbid obesity Code(s): E66.01 - MORBID (SEVERE) OBESITY DUE TO EXCESS CALORIES
--- NOTE | 2019-12-26 14:17 | PN ---
Physical Exam: SUBJECTIVE: Patient seen and examined. Pt explained she was frustrated with her diet and stated that she did not feel satiated on a puree diet. Pt told tech writer that she only had feelings of food stuck in her chest once a year and that she usually forgets about it. Pt is agreeable to cut her food into smaller pieces and to alternate solids with liquids during meals. OBJECTIVE: Vital Signs Period Temp Pulse Resp BP Sys/Brooke Pulse Ox Last 24 Hr 97.6 F-98.3 F 63-72 18-20 140-168/57-74 94-97 GENERAL: Awake, alert. In mild distress. HEENT: NCAT, EOMI, moist mucus membranes. CARDIAC: Regular rate and rhythm, no murmurs. ABDOMEN: Obese, nondistended, nontender to palpation. Normoactive bowel sounds. EXTREMITIES: Warm, well-perfused. Tender to palpation. NEURO: Hip flexion 2/5 b/l. Sensation intact in all extremities. SKIN: Scaly skin on b/l LE. Laboratory Last Values WBC 6.3 K/mm3 (4.0-10.0) 12/26/19 08:15 RBC 4.69 M/mm3 (3.60-5.2) 12/26/19 08:15 Hgb 13.2 GM/dL (10.7-15.3) 12/26/19 08:15 Hct 40.6 % (32.4-45.2) 12/26/19 08:15 MCV 86.6 fl (80-96) 12/26/19 08:15 MCH 28.2 pg (25.7-33.7) 12/26/19 08:15 MCHC 32.6 g/dl (32.0-36.0) 12/26/19 08:15 RDW 14.9 % (11.6-15.6) 12/26/19 08:15 Plt Count 227 K/MM3 (134-434) 12/26/19 08:15 MPV 7.6 fl (7.5-11.1) 12/26/19 08:15 Absolute Neuts (auto) 6.6 K/mm3 (1.5-8.0) 12/21/19 13:03 Neutrophils % 80.4 % (42.8-82.8) 12/21/19 13:03 Lymphocytes % 5.8 % (8-40) L D 12/21/19 13:03 Monocytes % 10.9 % (3.8-10.2) H 12/21/19 13:03 Eosinophils % 1.9 % (0-4.5) 12/21/19 13:03 Basophils % 1.0 % (0-2.0) 12/21/19 13:03 Nucleated RBC % 0 % (0-0) 12/21/19 13:03 PTT (Actin FS) 31.7 SECONDS (25.2-36.5) 12/21/19 13:03 Sodium 141 mmol/L (136-145) 12/26/19 08:15 Potassium 4.2 mmol/L (3.5-5.1) 12/26/19 08:15 Chloride 105 mmol/L (98-107) 12/26/19 08:15 Carbon Dioxide 31 mmol/L (21-32) 12/26/19 08:15 Anion Gap 4 MMOL/L (8-16) L 12/26/19 08:15 BUN 18.4 mg/dL (7-18) H 12/26/19 08:15 Creatinine 0.9 mg/dL (0.55-1.3) 12/26/19 08:15 Est GFR (CKD-EPI)AfAm 69.99 12/26/19 08:15 Est GFR (CKD-EPI)NonAf 60.39 12/26/19 08:15 Random Glucose 92 mg/dL (74-106) 12/26/19 08:15 Calcium 8.7 mg/dL (8.5-10.1) 12/26/19 08:15 Phosphorus 2.6 mg/dL (2.5-4.9) 12/23/19 07:18 Magnesium 2.4 mg/dL (1.8-2.4) 12/23/19 07:18 Total Bilirubin 0.5 mg/dL (0.2-1) 12/23/19 07:18 Direct Bilirubin 0.2 mg/dL (0.0-0.2) 12/23/19 07:18 AST 33 U/L (15-37) 12/23/19 07:18 ALT 44 U/L (13-61) 12/23/19 07:18 Alkaline Phosphatase 86 U/L (45-117) 12/23/19 07:18 Creatine Kinase 157 U/L (26-192) 12/24/19 07:18 Creatine Kinase Index 0.7 % (0.0-5.0) 12/24/19 07:18 CK-MB (CK-2) 1.2 ng/mL (0.5-3.6) 12/24/19 07:18 Troponin I < 0.02 ng/ml (0.00-0.05) 12/21/19 13:03 Total Protein 5.6 g/dl (6.4-8.2) L 12/23/19 07:18 Albumin 2.3 g/dl (3.4-5.0) L 12/23/19 07:18 Triglycerides 118 mg/dL (0-150) 12/21/19 13:03 Cholesterol 222 mg/dL (50-200) H 12/21/19 13:03 Total LDL Cholesterol 136 mg/dL (5-100) H 12/21/19 13:03 HDL Cholesterol 78 mg/dL (40-60) H 12/21/19 13:03 TSH 4.10 uIU/ml (0.358-3.74) H 12/21/19 13:03 Free T4 1.24 ng/dl (0.76-1.46) 12/21/19 13:03 Urine Color Yellow 12/21/19 13:55 Urine Appearance Cloudy 12/21/19 13:55 Urine pH 5.0 (5.0-8.0) 12/21/19 13:55 Ur Specific [place] 1.024 (1.010-1.035) 12/21/19 13:55 Urine Protein 1+ (NEGATIVE) H 12/21/19 13:55 Urine Glucose (UA) Negative (NEGATIVE) 12/21/19 13:55 Urine Ketones Negative (NEGATIVE) 12/21/19 13:55 Urine Blood 2+ (NEGATIVE) H 12/21/19 13:55 Urine Nitrite Negative (NEGATIVE) 12/21/19 13:55 Urine Bilirubin Negative (NEGATIVE) 12/21/19 13:55 Urine Urobilinogen 0.2 mg/dL (0.2-1.0) 12/21/19 13:55 Ur Leukocyte Esterase Trace (NEGATIVE) 12/21/19 13:55 Urine WBC (Auto) 48 /uL (0-25.8) 12/21/19 13:55 Urine RBC (Auto) 151 /uL (0-23.9) 12/21/19 13:55 Urine Casts (Auto) 1 /uL (0-3.1) 12/21/19 13:55 U Epithel Cells (Auto) 14 /uL (0-25.1) 12/21/19 13:55 Urine Crystals (Auto) None /hpf 12/21/19 13:55 Urine Bacteria (Auto) 540 /uL (0-1359) 12/21/19 13:55 COVID-19 (NAHUN) Not detected (Not Detected) 12/21/19 15:10 Blood Type Cancelled 12/21/19 13:03 Antibody Screen Cancelled 12/21/19 13:03 Active Medications Acetaminophen (Tylenol -) 650 mg PO Q6H PRN PRN Reason: Fever Or Pain Last Admin: 12/23/19 18:26 Dose: 650 mg Documented by: Atenolol (Tenormin -) 25 mg PO DAILY [facility] Last Admin: 12/26/19 09:22 Dose: 25 mg Documented by: Bacitracin (Bacitracin -) 1 applic TP DAILY [facility] Last Admin: 12/26/19 09:23 Dose: 1 applic Documented by: Cholecalciferol (Vitamin D3 -) 2,000 unit PO DAILY [facility] Cyclobenzaprine HCl (Flexeril -) 5 mg PO BID PRN PRN Reason: PAIN LEVEL 6-10 Last Admin: 12/26/19 09:26 Dose: 5 mg Documented by: Famotidine (Pepcid -) 20 mg PO DAILY [facility] Last Admin: 12/26/19 09:22 Dose: 20 mg Documented by: Gabapentin (Neurontin -) 200 mg PO TID [facility] Last Admin: 12/26/19 06:39 Dose: 200 mg Documented by: Heparin Sodium (Porcine) (Heparin -) 5,000 unit SQ TID [facility] Last Admin: 12/26/19 06:39 Dose: 5,000 unit Documented by: Levothyroxine Sodium (Synthroid -) 100 mcg PO ACBK [facility] Last Admin: 12/26/19 06:39 Dose: 100 mcg Documented by: Nystatin (Mycostatin Cream -) 1 applic TP BID [facility] Last Admin: 12/26/19 09:24 Dose: 1 applic Documented by: Prednisone (Deltasone -) 30 mg PO DAILY [facility] Stop: 12/30/19 09:59 Last Admin: 12/26/19 09:23 Dose: 30 mg Documented by: Valsartan (Diovan -) 160 mg PO DAILY [facility] ASSESSMENT/PLAN: 79 yo F with PMH HTN, hypothyroidism, fibromyalgia, spinal stenoisis, RLE parasthesias and hiatal hernia presented to ED s/p mechanical fall. She was admitted for mechanical fall secondary to spinal stenosis and for rhabdomyolysis. Dysphagia secondary to esophageal spasm vs. other motility disorder, improved -EGD/[facility] in 2012 -c/w pepcid for acid reflux -Esophagram with evidence of esophageal dysmotility and hiatal hernia. -Resumed gluten free, low fat, low sodium, lactose controlled diet. Pt was educated in alternating solids and liquids during meals. -f/u US of gallbladder r/o bile duct obstruction -Speech and swallow and GI consulted. Mechanical fall secondary to spinal stenosis and deconditioning -CT without acute pathology -c/w physical therapy -Accepted to [facility], pending authorization. -c/w prednisone taper Rhabdomyolysis, improved -CK improved -Cr at baseline, no kidney failure as a result of rhabdo Gluteal ulcer, ulcer on RLE -c/w bacitracin, nystatin cream -continue to monitor Fibromyalgia Generalized body pain -c/w gabapentin 200mg TID -c/w cyclobenzaprine 5mg BID -c/w acetaminophen 650mg q6h PRN HTN -c/w Valsartan 160mg qD, Atenolol 25mg qD -monitor BP Hypothyroidism -c/w home dose levothyroxine 100mcg qD Ppx -DVT: SQH -GI: pepcid FEN -no standing fluids -replete electrolytes -Gluten free, low sodium, low fat, dairy controlled diet. -c/w Vitamin D3 2000U qD Dispo: discharge tomorrow to [facility]. Pending authorization. Visit type - Emergency Visit Emergency Visit: Yes ED Registration Date: 12/21/19 Care time: The patient presented to the Emergency Department on the above date and was hospitalized for further evaluation of their emergent condition. - New Patient This patient is new to me today: No - Critical Care Critical Care patient: No - Medication Review Med list reviewed for High Risk Meds patients 65 and older: Yes ATTENDING PHYSICIAN STATEMENT I saw and evaluated the patient. I reviewed the resident's note and discussed the case with the resident. I agree with the resident's findings and plan as documented. SUBJECTIVE: OBJECTIVE: ASSESSMENT AND PLAN:
--- NOTE | 2019-12-26 18:20 | PN ---
Teaching Attending Note Name of Resident: Deb Garcia ATTENDING PHYSICIAN STATEMENT I saw and evaluated the patient. I reviewed the resident's note and discussed the case with the resident. I agree with the resident's findings and plan as documented. SUBJECTIVE: Patient is feeling better with NAD, low back pain is better OBJECTIVE: Vital Signs Temperature 98.5 F 12/26/19 18:12 Pulse Rate 63 12/26/19 18:12 Respiratory Rate 20 12/26/19 18:12 Blood Pressure 123/64 12/26/19 18:12 O2 Sat by Pulse Oximetry (%) 97 12/26/19 18:12 PE: per resident's note CBCD WBC 6.3 K/mm3 (4.0-10.0) 12/26/19 08:15 RBC 4.69 M/mm3 (3.60-5.2) 12/26/19 08:15 Hgb 13.2 GM/dL (10.7-15.3) 12/26/19 08:15 Hct 40.6 % (32.4-45.2) 12/26/19 08:15 MCV 86.6 fl (80-96) 12/26/19 08:15 MCHC 32.6 g/dl (32.0-36.0) 12/26/19 08:15 RDW 14.9 % (11.6-15.6) 12/26/19 08:15 Plt Count 227 K/MM3 (134-434) 12/26/19 08:15 MPV 7.6 fl (7.5-11.1) 12/26/19 08:15 CMP Sodium 141 mmol/L (136-145) 12/26/19 08:15 Potassium 4.2 mmol/L (3.5-5.1) 12/26/19 08:15 Chloride 105 mmol/L (98-107) 12/26/19 08:15 Carbon Dioxide 31 mmol/L (21-32) 12/26/19 08:15 Anion Gap 4 MMOL/L (8-16) L 12/26/19 08:15 BUN 18.4 mg/dL (7-18) H 12/26/19 08:15 Creatinine 0.9 mg/dL (0.55-1.3) 12/26/19 08:15 Random Glucose 92 mg/dL (74-106) 12/26/19 08:15 Calcium 8.7 mg/dL (8.5-10.1) 12/26/19 08:15 Total Bilirubin 0.5 mg/dL (0.2-1) 12/23/19 07:18 AST 33 U/L (15-37) 12/23/19 07:18 ALT 44 U/L (13-61) 12/23/19 07:18 Alkaline Phosphatase 86 U/L (45-117) 12/23/19 07:18 Total Protein 5.6 g/dl (6.4-8.2) L 12/23/19 07:18 Albumin 2.3 g/dl (3.4-5.0) L 12/23/19 07:18 CARDIAC ENZYMES Creatine Kinase 157 U/L (26-192) 12/24/19 07:18 Troponin I < 0.02 ng/ml (0.00-0.05) 12/21/19 13:03 Current Medications Generic Name Dose Route Start Last Admin Trade Name Freq PRN Reason Stop Dose Admin Acetaminophen 650 mg 12/23/19 18:06 12/23/19 18:26 Tylenol - PO 650 mg Q6H PRN Administration Fever Or Pain Atenolol 25 mg 12/24/19 10:00 12/26/19 09:22 Tenormin - PO 25 mg DAILY [facility] Administration Bacitracin 1 applic 12/22/19 10:00 12/26/19 09:23 Bacitracin - TP 1 applic DAILY [facility] Administration Cholecalciferol 2,000 unit 12/27/19 10:00 Vitamin D3 - PO DAILY [facility] Cyclobenzaprine HCl 5 mg 12/25/19 13:19 12/26/19 09:26 Flexeril - PO 5 mg BID PRN Administration PAIN LEVEL 6-10 Famotidine 20 mg 12/23/19 15:30 12/26/19 09:22 Pepcid - PO 20 mg DAILY [facility] Administration Gabapentin 200 mg 12/23/19 22:00 12/26/19 15:36 Neurontin - PO 200 mg TID [facility] Administration Heparin Sodium (Porcine) 5,000 unit 12/23/19 22:00 12/26/19 15:35 Heparin - SQ 5,000 unit TID [facility] Administration Levothyroxine Sodium 100 mcg 12/24/19 07:00 10/08/20 06:39 Synthroid - PO 100 mcg ACBK [facility] Administration Nystatin 1 applic 12/22/19 11:30 12/26/19 09:24 Mycostatin Cream - TP 1 applic BID [facility] Administration Prednisone 30 mg 12/26/19 10:00 12/26/19 09:23 Deltasone - PO 12/30/19 09:59 30 mg DAILY [facility] Administration Valsartan 160 mg 12/26/19 10:54 Diovan - PO DAILY [facility] Home Medications Medication Instructions Recorded Atenolol [Tenormin -] 25 mg PO DAILY 10/30/11 Levothyroxine [Synthroid -] 100 mcg PO DAILY 10/30/11 Bacitracin - [Bacitracin Topical 1 applic TP DAILY #1 tube 12/24/19 Ointment -] Famotidine [Pepcid -] 20 mg PO DAILY #30 tablet 12/24/19 Gabapentin [Neurontin -] 200 mg PO TID #30 capsule 12/24/19 Nystatin Cream [Mycostatin Cream -] 1 applic TP BID #1 tube 12/24/19 Cholecalciferol (Vitamin D3) 2,000 unit PO DAILY #30 tab 12/26/19 [Vitamin D3 -] Prednisone See Taper PO DAILY #24 tablet 12/26/19 Valsartan [Diovan] 160 mg PO DAILY #30 tablet 12/26/19 Microbiology 12/21/19 13:55 Urine - Urine Clean Catch Urine Culture - Final Contaminated: Please Repeat ASSESSMENT AND PLAN: This patient is an 79yof with PMhx of spinal stenosis , RLE parasthesias, hypothyroidism, fibromyalgia, and hiatal hernia who presented after a fall and inability to get up for 3 days. She was found to have Rhabdo. which resolved but having a swallowing difficulty now. #S/p esophagram: showing esophageal dysmitility. Dr Starr is on the case , further managment per Dr levin # s/p Mechanical fall, due to spinal stenosis, OA, improving on steroid . patient is c/o having a low back pain continue to improve on oral steroid. will continue taper dose steroid. # s/p Rhabdo: CPK improved s/p IVF # s/p acute Transaminitis : normal now # s/p Volume depletion : improved , continue oral hydration # Hx of HTN: cont atenolol and continue valsartan # Hx of hypothyroidism: cont home synthroid. PT eval DVT PX SNF placement pending.
[2019-12-26] MEDS: ACETAMINOPHEN 325 MG TABLET (FP) PO PRN (21:57)
[2019-12-27] MEDS: GABAPENTIN 100 MG CAPSULE PO SCH ×2 (06:06→15:10)
[2019-12-27] MEDS: HEPARIN NA (PORCINE) 5,000 UNITS/ML 1ML VIAL SQ SCH ×2 (06:06→15:09)
[2019-12-27] MEDS: LEVOTHYROXINE NA 100 MCG TABLET (FP) PO SCH (06:06)
[2019-12-27] MEDS ORDERED: MULTIVITAMINS (DAILY MVI) TABLET (FP) PO SCH (10:00)
[2019-12-27] MEDS ORDERED: CHOLECALCIFEROL (VIT D3) 1,000 UNIT (25 MCG) TABLET PO SCH (10:00)
--- NOTE | 2019-12-27 10:49 | PN ---
Progress Note, VES[employer] - Note Progress Note: Selected Entries 12/24/19 12/24/19 12/24/19 01:48 05:00 09:00 Breakfast Diet Tolerated Lunch Supper Temperature Pulse Rate Blood Pressure O2 Sat by Pulse 96 97 99 Oximetry (%) Oxygen Delivery Room Air Method 12/24/19 12/24/19 12/24/19 13:00 15:00 18:01 Breakfast 75% Diet Tolerated Well Lunch 75% Supper Temperature Pulse Rate Blood Pressure O2 Sat by Pulse 97 98 Oximetry (%) Oxygen Delivery Method 12/24/19 12/24/19 12/24/19 21:00 22:00 22:13 Breakfast Diet Tolerated Well Lunch Supper 75% Temperature Pulse Rate Blood Pressure O2 Sat by Pulse 96 96 Oximetry (%) Oxygen Delivery Room Air Method 12/24/19 12/25/19 12/25/19 23:00 02:09 06:00 Breakfast Diet Tolerated Well Lunch Supper Temperature 98.1 F 98 F Pulse Rate 76 74 Blood Pressure 150/62 146/77 O2 Sat by Pulse Oximetry (%) Oxygen Delivery Method 12/25/19 09:00 Breakfast Diet Tolerated Lunch Supper Temperature 98.2 F Pulse Rate 74 Blood Pressure 142/65 O2 Sat by Pulse Oximetry (%) Oxygen Delivery Method Selected Entries 12/25/19 12/25/19 12/26/19 15:00 18:00 02:00 Breakfast 75% Lunch 75% Supper 75% Temperature 98.0 F Pulse Rate 63 Blood Pressure 145/57 L 12/26/19 12/26/19 06:00 09:10 Breakfast Lunch Supper Temperature 98.1 F 98.3 F Pulse Rate 65 67 Blood Pressure 140/62 168/68 Laboratory Tests 12/26/19 08:15 WBC 6.3 Selected Entries 12/26/19 12/26/19 15:13 18:13 Breakfast 75% Lunch 75% Supper 100% u/s- gallstones Diet advanced to reg/thin liquid Rec-HOB elevated to 90 mealtime and for an hour after meals. Alternate solids with liquids while eating, (as she normally waits until the end of the meal to drink) and at end of meal. GERD precautions
[2019-12-27 11:07] VITALS: BP 140/55; PULSE 57; TEMP 97.7
[2019-12-27] MEDS: BACITRACIN 15 GM TUBE TOPICAL OINTMENT TP SCH (11:24)
[2019-12-27] MEDS: NYSTATIN 100,000 UNIT/GM TOPICAL CREAM 15 GM TUBE TP SCH (11:25)
[2019-12-27] MEDS: FAMOTIDINE 20 MG TABLET PO SCH (11:25)
[2019-12-27] MEDS: predniSONE 10 MG TABLET (UD) PO SCH (11:25)
[2019-12-27] MEDS: ATENOLOL 25 MG TABLET (FP) PO SCH (11:25)
--- NOTE | 2019-12-27 12:40 | DS ---
Physical Exam: SUBJECTIVE: Patient seen and examined. Pt was able to tolerate her food yesterday. Complains of persistent hip pain. Was seen to be doing exercise with PT. Pt stated she noticed she improved motion of lower extremities. OBJECTIVE: Vital Signs Period Temp Pulse Resp BP Sys/Brooke Pulse Ox Last 24 Hr 97.5 F-98.7 F 57-65 20-20 123-145/55-72 96-97 PHYSICAL EXAM GENERAL: Awake, alert. In mild distress. HEENT: NCAT, EOMI, moist mucus membranes. CARDIAC: Regular rate and rhythm, no murmurs. ABDOMEN: Obese, nondistended, nontender to palpation. Normoactive bowel sounds. EXTREMITIES: Warm, well-perfused. Tender to palpation. NEURO: Hip flexion 3/5 b/l. Dorsiflexion and plantarflexion 5/5 b/l. Sensation intact in all extremities. SKIN: Scaly skin on b/l LE. RLE with ulcer that was not draining. LABS Laboratory Last Values WBC 6.3 K/mm3 (4.0-10.0) 12/26/19 08:15 RBC 4.69 M/mm3 (3.60-5.2) 12/26/19 08:15 Hgb 13.2 GM/dL (10.7-15.3) 12/26/19 08:15 Hct 40.6 % (32.4-45.2) 12/26/19 08:15 MCV 86.6 fl (80-96) 12/26/19 08:15 MCH 28.2 pg (25.7-33.7) 12/26/19 08:15 MCHC 32.6 g/dl (32.0-36.0) 12/26/19 08:15 RDW 14.9 % (11.6-15.6) 12/26/19 08:15 Plt Count 227 K/MM3 (134-434) 12/26/19 08:15 MPV 7.6 fl (7.5-11.1) 12/26/19 08:15 Absolute Neuts (auto) 6.6 K/mm3 (1.5-8.0) 12/21/19 13:03 Neutrophils % 80.4 % (42.8-82.8) 12/21/19 13:03 Lymphocytes % 5.8 % (8-40) L D 12/21/19 13:03 Monocytes % 10.9 % (3.8-10.2) H 12/21/19 13:03 Eosinophils % 1.9 % (0-4.5) 12/21/19 13:03 Basophils % 1.0 % (0-2.0) 12/21/19 13:03 Nucleated RBC % 0 % (0-0) 12/21/19 13:03 PTT (Actin FS) 31.7 SECONDS (25.2-36.5) 12/21/19 13:03 Sodium 141 mmol/L (136-145) 12/26/19 08:15 Potassium 4.2 mmol/L (3.5-5.1) 12/26/19 08:15 Chloride 105 mmol/L (98-107) 12/26/19 08:15 Carbon Dioxide 31 mmol/L (21-32) 12/26/19 08:15 Anion Gap 4 MMOL/L (8-16) L 12/26/19 08:15 BUN 18.4 mg/dL (7-18) H 12/26/19 08:15 Creatinine 0.9 mg/dL (0.55-1.3) 12/26/19 08:15 Est GFR (CKD-EPI)AfAm 69.99 12/26/19 08:15 Est GFR (CKD-EPI)NonAf 60.39 12/26/19 08:15 Random Glucose 92 mg/dL (74-106) 12/26/19 08:15 Calcium 8.7 mg/dL (8.5-10.1) 12/26/19 08:15 Phosphorus 2.6 mg/dL (2.5-4.9) 12/23/19 07:18 Magnesium 2.4 mg/dL (1.8-2.4) 12/23/19 07:18 Total Bilirubin 0.5 mg/dL (0.2-1) 12/23/19 07:18 Direct Bilirubin 0.2 mg/dL (0.0-0.2) 12/23/19 07:18 AST 33 U/L (15-37) 12/23/19 07:18 ALT 44 U/L (13-61) 12/23/19 07:18 Alkaline Phosphatase 86 U/L (45-117) 12/23/19 07:18 Creatine Kinase 157 U/L (26-192) 12/24/19 07:18 Creatine Kinase Index 0.7 % (0.0-5.0) 12/24/19 07:18 CK-MB (CK-2) 1.2 ng/mL (0.5-3.6) 12/24/19 07:18 Troponin I < 0.02 ng/ml (0.00-0.05) 12/21/19 13:03 Total Protein 5.6 g/dl (6.4-8.2) L 12/23/19 07:18 Albumin 2.3 g/dl (3.4-5.0) L 12/23/19 07:18 Triglycerides 118 mg/dL (0-150) 12/21/19 13:03 Cholesterol 222 mg/dL (50-200) H 12/21/19 13:03 Total LDL Cholesterol 136 mg/dL (5-100) H 12/21/19 13:03 HDL Cholesterol 78 mg/dL (40-60) H 12/21/19 13:03 TSH 4.10 uIU/ml (0.358-3.74) H 12/21/19 13:03 Free T4 1.24 ng/dl (0.76-1.46) 12/21/19 13:03 Urine Color Yellow 12/21/19 13:55 Urine Appearance Cloudy 12/21/19 13:55 Urine pH 5.0 (5.0-8.0) 12/21/19 13:55 Ur Specific [place] 1.024 (1.010-1.035) 12/21/19 13:55 Urine Protein 1+ (NEGATIVE) H 12/21/19 13:55 Urine Glucose (UA) Negative (NEGATIVE) 12/21/19 13:55 Urine Ketones Negative (NEGATIVE) 12/21/19 13:55 Urine Blood 2+ (NEGATIVE) H 12/21/19 13:55 Urine Nitrite Negative (NEGATIVE) 12/21/19 13:55 Urine Bilirubin Negative (NEGATIVE) 12/21/19 13:55 Urine Urobilinogen 0.2 mg/dL (0.2-1.0) 12/21/19 13:55 Ur Leukocyte Esterase Trace (NEGATIVE) 12/21/19 13:55 Urine WBC (Auto) 48 /uL (0-25.8) 12/21/19 13:55 Urine RBC (Auto) 151 /uL (0-23.9) 12/21/19 13:55 Urine Casts (Auto) 1 /uL (0-3.1) 12/21/19 13:55 U Epithel Cells (Auto) 14 /uL (0-25.1) 12/21/19 13:55 Urine Crystals (Auto) None /hpf 12/21/19 13:55 Urine Bacteria (Auto) 540 /uL (0-1359) 12/21/19 13:55 COVID-19 (NAHUN) Not detected (Not Detected) 12/26/19 12:30 Blood Type Cancelled 12/21/19 13:03 Antibody Screen Cancelled 12/21/19 13:03 Active Medications Acetaminophen (Tylenol -) 650 mg PO Q6H PRN PRN Reason: Fever Or Pain Last Admin: 12/26/19 21:57 Dose: 650 mg Documented by: Atenolol (Tenormin -) 25 mg PO DAILY [facility] Last Admin: 12/27/19 11:25 Dose: 25 mg Documented by: Bacitracin (Bacitracin -) 1 applic TP DAILY [facility] Last Admin: 12/27/19 11:24 Dose: 1 applic Documented by: Cholecalciferol (Vitamin D3 -) 2,000 unit PO DAILY [facility] Last Admin: 12/27/19 11:25 Dose: 2,000 unit Documented by: Cyclobenzaprine HCl (Flexeril -) 5 mg PO BID PRN PRN Reason: PAIN LEVEL 6-10 Last Admin: 12/26/19 21:56 Dose: 5 mg Documented by: Famotidine (Pepcid -) 20 mg PO DAILY [facility] Last Admin: 12/27/19 11:25 Dose: 20 mg Documented by: Gabapentin (Neurontin -) 200 mg PO TID [facility] Last Admin: 12/27/19 06:06 Dose: 200 mg Documented by: Heparin Sodium (Porcine) (Heparin -) 5,000 unit SQ TID [facility] Last Admin: 12/27/19 06:06 Dose: 5,000 unit Documented by: Levothyroxine Sodium (Synthroid -) 100 mcg PO ACBK [facility] Last Admin: 12/27/19 06:06 Dose: 100 mcg Documented by: Nystatin (Mycostatin Cream -) 1 applic TP BID [facility] Last Admin: 12/27/19 11:25 Dose: 1 applic Documented by: Prednisone (Deltasone -) 30 mg PO DAILY [facility] Stop: 12/30/19 09:59 Last Admin: 12/27/19 11:25 Dose: 30 mg Documented by: Valsartan (Diovan -) 160 mg PO DAILY [facility] Last Admin: 12/27/19 11:26 Dose: 160 mg Documented by: HOSPITAL COURSE: 79 yo F with PMH HTN, hypothyroidism, fibromyalgia, spinal stenoisis, RLE parasthesias and hiatal hernia presented to ED s/p mechanical fall. She was admitted for mechanical fall secondary to spinal stenosis and for rhabdomyolysis. CT head done and was found to have no acute pathology. Pt's lower extremity strength improved with physical therapy. Pt also received predisone taper for inflammation and was found to have improved bodily pain. Pt was given IVF with improvement of the rhabdomyolysis. Creatinine remained at baseline. During her hospital course, pt experienced transient dysphagia. Esophagram performed and pt found to have esophageal dysmotility. Instructed pt on cutting up food and alternating solid and liquid during meals. Pt advised to avoid tough meat to prevent worsening her esophageal dysmotility. Pt tolerated gluten free, low fat, low sodium and lactose controlled diet. Pt is currently hemodynamically stable and is medically [facility]. Date of Admission:12/21/19 Date of Discharge: 12/27/19 Minutes to complete discharge: 36 Discharge Summary Problems reviewed: Yes Reason For Visit: MORBID OBESITY RHABDOMYOLYSIS ELEVATED LIVER ENZYM Current Active Problems Diverticulosis (Chronic) Hiatal hernia (Chronic) Hyperlipidemia (Chronic) Hypertension (Chronic) Hypothyroidism (Chronic) Inability to walk (Chronic) L4-L5 disc bulge (Chronic) Morbid obesity (Chronic) Condition: Improved - Instructions Diet, Activity, Other Instructions: Your visit: You came to the hospital because you fell and was unable to get up. You were admitted to the hospital for care of these symptoms. We did imaging of your head, neck and spine. You were found to have no concerning findings of your head. There were some minimal chronic degenerative changes found in your neck and spine. No fractures seen. You were fond to have some mild disc bulging that impinges a nerve root in your lumbar spine. You are now stable and may be discharged to a rehabilitation center to regain your strength. We also evaluated your swallowing. You were found to have dysfunction of your esophagus's motility. Please cut up your food into small pieces and avoid tough meats. Please alternate between solid and liquid during your meal. You may follow up with your kier drier for further management. We did ultrasound of your abdomen. You were found to have multiple stones in your gallbladder with some gallbladder distension. Additional image findings: During the evaluation of your swallowing, we found some incidental findings. You were found to have some gallstones and a hiatal hernia. You may follow up with your primary care physician to evaluate and manage this. Medications: -Please continue to take Gabapentin 200mg by mouth three times a day. -Please continue to take Levothyroxine 100mcg by mouth daily for your hypothyroidism -Please continue to take Atenolol 25mg by mouth daily for your blood pressure. Medication changes: -We INCREASED your Valsartan to 160mg daily. -Please continue to apply Bacitracin topically on your wounds daily. -Please continue to apply Nystatin cream twice a day on the folds of your skin where it irritates you. -Please continue to take Famotidine 20mg by mouth daily for your acid reflux. -Please continue to take Vitamin D3 2000 units by mouth daily for bone strength. -You will be doing a Prednisone taper. You are taking this for inflammation and pain. Please take your medication as follows: -Day#1 12/27- Take 3 pills. Each pill is 10mg. Total dose is 30mg. -Day#2 12/28- Take 3 pills. Each pill is 10mg. Total dose is 30mg. -Day#3 12- Take 3 pills. Each pill is 10mg. Total dose is 30mg. -Day#4 12/30- Take 3 pills. Each pill is 10mg. Total dose is 30mg. -Day#5 12/31- Take 2 pills. Each pill is 10mg. Total dose is 20mg. -Day#6 01/01- Take 2 pills. Each pill is 10mg. Total dose is 20mg. -Day#7 01/02- Take 2 pills. Each pill is 10mg. Total dose is 20mg. -Day#8 01/03- Take 2 pills. Each pill is 10mg. Total dose is 20mg. -Day#9 01/04- Take 1 pills. Each pill is 10mg. Total dose is 10mg. -Day#10 01/05- Take 1 pills. Each pill is 10mg. Total dose is 10mg. -Day#11 01/06- Take 1 pills. Each pill is 10mg. Total dose is 10mg. -Day#12 01/07- Take 1 pills. Each pill is 10mg. Total dose is 10mg. Follow up: -Please make an appointment to see a primary care provider 2 weeks from today. Since you do not have one, you can call to schedule an appointment at the [facility] residents' clinic, located at [address] [place] [address]. If you would like to continue seeing Dr. Deb Garcia, please ask for a Monday morning appointment. -Please make an appointment to see your kier drier, Dr. Lenz, 1 week from today. You may discuss your esophagus dysmotility and follow up for colonoscopies for cancer screening. Additional instructions: -You are being discharged to a rehabilitation center to regain your strength. -Please do a DEXA scan of your bones to evaluate its condition. -Please cut up for food into small pieces. Do not eat tough meats or dry food. Alternate between liquid and solid during your meal. You may find that pureed food is easier for your swallowing. Please call 911 or come directly to the emergency department if you experience recurrence of the symptoms that brought you to the hospital, unusual headache, vision change, shortness of breath, chest pain, numbness, tingling, loss of alertness/awareness, loss of function, unusual bleeding or any alarming symptoms. Referrals: Lisandro Jimenez MD [Staff Physician] - 2 Weeks () Maria Esther Lenz MD [Staff Physician] - 1 Week Disposition: CARE HOME FACILITY - Home Medications Comprehensive Discharge Medication List: Ambulatory Orders Atenolol [Tenormin -] 25 mg PO DAILY 10/30/11 Levothyroxine [Synthroid -] 100 mcg PO DAILY 10/30/11 Bacitracin - [Bacitracin Topical Ointment -] 1 applic TP DAILY #1 tube 12/24/19 Famotidine [Pepcid -] 20 mg PO DAILY #30 tablet 12/24/19 Gabapentin [Neurontin -] 200 mg PO TID #30 capsule 12/24/19 Nystatin Cream [Mycostatin Cream -] 1 applic TP BID #1 tube 12/24/19 Cholecalciferol (Vitamin D3) [Vitamin D3 -] 2,000 unit PO DAILY #30 tab 12/26/19 Prednisone See Taper PO DAILY #24 tablet 12/26/19 Valsartan [Diovan] 160 mg PO DAILY #30 tablet 12/26/19 This patient is new to me today: No Emergency Visit: Yes ED Registration Date: 12/21/19 Care time: The patient presented to the Emergency Department on the above date and was hospitalized for further evaluation of their emergent condition. Critical Care patient: No - Discharge Referral Referred to [facility] No ATTENDING PHYSICIAN STATEMENT I saw and evaluated the patient. I reviewed the resident's note and discussed the case with the resident. I agree with the resident's findings and plan as documented. SUBJECTIVE: OBJECTIVE: ASSESSMENT AND PLAN:
--- NOTE | 2019-12-27 16:08 | PN ---
Teaching Attending Note Name of Resident: Deb Garcia ATTENDING PHYSICIAN STATEMENT I saw and evaluated the patient. I reviewed the resident's note and discussed the case with the resident. I agree with the resident's findings and plan as documented. SUBJECTIVE: Patient is feeling better with NAD. going to rehab. OBJECTIVE: Vital Signs Temperature 97.7 F 12/27/19 10:00 Pulse Rate 57 L 12/27/19 10:00 Respiratory Rate 20 12/27/19 10:00 Blood Pressure 140/55 L 12/27/19 10:00 O2 Sat by Pulse Oximetry (%) 97 12/27/19 10:00 PE: PER RESIDENT'S NOTE CBCD WBC 6.3 K/mm3 (4.0-10.0) 12/26/19 08:15 RBC 4.69 M/mm3 (3.60-5.2) 12/26/19 08:15 Hgb 13.2 GM/dL (10.7-15.3) 12/26/19 08:15 Hct 40.6 % (32.4-45.2) 12/26/19 08:15 MCV 86.6 fl (80-96) 12/26/19 08:15 MCHC 32.6 g/dl (32.0-36.0) 12/26/19 08:15 RDW 14.9 % (11.6-15.6) 12/26/19 08:15 Plt Count 227 K/MM3 (134-434) 12/26/19 08:15 MPV 7.6 fl (7.5-11.1) 12/26/19 08:15 CMP Sodium 141 mmol/L (136-145) 12/26/19 08:15 Potassium 4.2 mmol/L (3.5-5.1) 12/26/19 08:15 Chloride 105 mmol/L (98-107) 12/26/19 08:15 Carbon Dioxide 31 mmol/L (21-32) 12/26/19 08:15 Anion Gap 4 MMOL/L (8-16) L 12/26/19 08:15 BUN 18.4 mg/dL (7-18) H 12/26/19 08:15 Creatinine 0.9 mg/dL (0.55-1.3) 12/26/19 08:15 Random Glucose 92 mg/dL (74-106) 12/26/19 08:15 Calcium 8.7 mg/dL (8.5-10.1) 12/26/19 08:15 Total Bilirubin 0.5 mg/dL (0.2-1) 12/23/19 07:18 AST 33 U/L (15-37) 12/23/19 07:18 ALT 44 U/L (13-61) 12/23/19 07:18 Alkaline Phosphatase 86 U/L (45-117) 12/23/19 07:18 Total Protein 5.6 g/dl (6.4-8.2) L 12/23/19 07:18 Albumin 2.3 g/dl (3.4-5.0) L 12/23/19 07:18 CARDIAC ENZYMES Creatine Kinase 157 U/L (26-192) 12/24/19 07:18 Troponin I < 0.02 ng/ml (0.00-0.05) 12/21/19 13:03 Home Medications Medication Instructions Recorded Atenolol [Tenormin -] 25 mg PO DAILY 10/30/11 Levothyroxine [Synthroid -] 100 mcg PO DAILY 10/30/11 Bacitracin - [Bacitracin Topical 1 applic TP DAILY #1 tube 12/24/19 Ointment -] Famotidine [Pepcid -] 20 mg PO DAILY #30 tablet 12/24/19 Gabapentin [Neurontin -] 200 mg PO TID #30 capsule 12/24/19 Nystatin Cream [Mycostatin Cream -] 1 applic TP BID #1 tube 12/24/19 Cholecalciferol (Vitamin D3) 2,000 unit PO DAILY #30 tab 12/26/19 [Vitamin D3 -] Prednisone See Taper PO DAILY #24 tablet 12/26/19 Valsartan [Diovan] 160 mg PO DAILY #30 tablet 12/26/19 Microbiology 12/21/19 13:55 Urine - Urine Clean Catch Urine Culture - Final Contaminated: Please Repeat ASSESSMENT AND PLAN: This patient is an 79yof with PMhx of spinal stenosis , RLE parasthesias, hypothyroidism, fibromyalgia, and hiatal hernia who presented after a fall and inability to get up for 3 days. She was found to have Rhabdo. which resolved but having a swallowing difficulty now. #S/p esophagram: showing esophageal dysmotility. Dr Starr is on the case , will f/u with Dr Portillo as an outpatient # s/p Mechanical fall, due to spinal stenosis, OA, improving on steroid . patient is c/o having a low back pain continue to improve on oral steroid. l continue taper dose steroid. # s/p Rhabdo: CPK improved s/p IVF # s/p acute Transaminitis : normal now # s/p Volume depletion : improved , continue oral hydration # Hx of HTN: cont atenolol and continue valsartan # Hx of hypothyroidism: cont home synthroid. PT eval DVT PX dc patient to SNF for rehab.
[2019-12-28] MEDS ORDERED: predniSONE 20 MG TABLET (UD) PO SCH (10:00)
[2019-12-30] MEDS ORDERED: predniSONE 10 MG TABLET (UD) PO SCH (10:00)
== END 2019-12-27 14:44 | DRG 552 ==
LOC: JER 12:17 → JERBED 15:40 → J5S 19:38
PROVIDERS: ADMIT Internal Medicine; ATTEND Internal Medicine
DX: M48.00 Spinal stenosis, site unspecified (principal); M62.82 Rhabdomyolysis; Z68.43 Body mass index [BMI] 50.0-59.9, adult; R74.01 Elevation of levels of liver transaminase levels; E86.9 Volume depletion, unspecified; I10 Essential (primary) hypertension; E03.9 Hypothyroidism, unspecified; M79.7 Fibromyalgia; K44.9 Diaphragmatic hernia without obstruction or gangrene; R13.19 Other dysphagia; E66.01 Morbid (severe) obesity due to excess calories; K57.90 Diverticulosis of intestine, part unspecified, without perforation or abscess without bleeding; E78.5 Hyperlipidemia, unspecified
CPT/HCPCS: 36415; 70450-TC; 72125-TC; 72128-TC; 72131-TC; 74220-TC-FY; 76705-TC; 80048; 80053; 80061; 80076; 81003; 82550; 82553; 83721; 83735; 84100; 84132; 84439; 84443; 84484; 85025; 85027; 85730; 87086; 93005; 93010; 97116-GP; 97162-GP; 99284-25; C9803; J1644; Q2036; U0003

== ENCOUNTER 2020-02-05 11:47 | Inpatient (IN) | payer OTHER ==
[2020-02-05 14:37] LABS: BASO % 2.5 % (0-2.0); EOS % 5.6 % (0-4.5); HEMATOCRIT 42.1 % (32.4-45.2); HEMOGLOBIN 13.6 GM/dL (10.7-15.3); LYMPH % 22.2 % (8-40); MCH 28.7 pg (25.7-33.7); MCHC 32.3 g/dl (32.0-36.0); MEAN PLT VOLUME 7.9 fl (7.5-11.1); MONO % 8.5 % (3.8-10.2); NEUT % 61.2 % (42.8-82.8); PLATELET COUNT 212 K/MM3 (134-434); RBC 4.73 M/mm3 (3.60-5.2); WHITE BLOOD COUNT 4.9 K/mm3 (4.0-10.0)
[2020-02-05 15:02] LABS: POTASSIUM 4.5 mmol/L (3.5-5.1)
[2020-02-05 15:03] LABS: CALCIUM 8.7 mg/dL (8.5-10.1)
[2020-02-05 15:05] LABS: ALBUMIN 2.9 g/dl (3.4-5.0); BLOOD UREA NITROGEN 23.5 mg/dL (7-18)
[2020-02-05 15:09] LABS: BILIRUBIN,TOTAL 0.4 mg/dL (0.2-1)
[2020-02-05 15:10] LABS: TOT PROT 6.1 g/dl (6.4-8.2)
[2020-02-05] MEDS ORDERED: CEFTRIAXONE 1 GM/50 ML BAG ONE (17:15)
[2020-02-05] MEDS ORDERED: HEPARIN NA (PORCINE) 5,000 UNITS/ML 1ML VIAL ONE (17:15)
[2020-02-05] MEDS: CEFTRIAXONE 1 GM in DEXTROSE 5%-WATER - 50 ML IVPB SCH (17:30)
[2020-02-05] MEDS: GABAPENTIN 100 MG CAPSULE PO SCH (21:26)
[2020-02-05] MEDS: HEPARIN NA (PORCINE) 5,000 UNITS/ML 1ML VIAL SQ SCH (21:28)
[2020-02-05] MEDS: NYSTATIN 100,000 UNIT/GM TOPICAL CREAM 15 GM TUBE TP SCH (22:14)
[2020-02-06 00:08] VITALS: BMI 58.3
[2020-02-06] MEDS: GABAPENTIN 100 MG CAPSULE PO SCH ×3 (06:04→22:31)
[2020-02-06] MEDS: HEPARIN NA (PORCINE) 5,000 UNITS/ML 1ML VIAL SQ SCH ×3 (06:04→22:31)
[2020-02-06] MEDS: LEVOTHYROXINE NA 100 MCG TABLET (FP) PO SCH (06:04)
[2020-02-06 06:36] LABS: BASO % 2.1 % (0-2.0); EOS % 6.1 % (0-4.5); HEMATOCRIT 38.3 % (32.4-45.2); HEMOGLOBIN 12.5 GM/dL (10.7-15.3); LYMPH % 22.8 % (8-40); MCH 28.9 pg (25.7-33.7); MCHC 32.6 g/dl (32.0-36.0); MEAN CELL VOLUME 88.8 fl (80-96); MEAN PLT VOLUME 8.2 fl (7.5-11.1); MONO % 10.1 % (3.8-10.2); NEUT % 58.9 % (42.8-82.8); PLATELET COUNT 193 K/MM3 (134-434); RBC 4.31 M/mm3 (3.60-5.2); WHITE BLOOD COUNT 4.7 K/mm3 (4.0-10.0)
[2020-02-06 06:42] LABS: POTASSIUM 3.9 mmol/L (3.5-5.1)
[2020-02-06 06:50] LABS: ALBUMIN 2.4 g/dl (3.4-5.0); CALCIUM 8.2 mg/dL (8.5-10.1)
[2020-02-06 06:51] LABS: BILIRUBIN,TOTAL 0.4 mg/dL (0.2-1); TOT PROT 5.2 g/dl (6.4-8.2)
[2020-02-06 06:53] LABS: CREATININE 0.9 mg/dL (0.55-1.3)
[2020-02-06] MEDS ORDERED: DEXTROSE 5%-WATER - 50 ML IVPB ONE (09:56)
[2020-02-06] MEDS ORDERED: cefTRIAXone SODIUM 1 GM VIAL ONE (09:56)
[2020-02-06] MEDS ORDERED: BACITRACIN 15 GM TUBE TOPICAL OINTMENT TP SCH (10:00)
[2020-02-06] MEDS ORDERED: PNEUMOC 13-VAL CONJ-DIP CRM/PF 0.5 ML DISP.SYRIN IM ONE (10:00)
[2020-02-06] MEDS: FAMOTIDINE 20 MG TABLET PO SCH (10:03)
[2020-02-06] MEDS: CEFTRIAXONE 1 GM in DEXTROSE 5%-WATER - 50 ML IVPB SCH (10:04)
[2020-02-06] MEDS: VALSARTAN 160 MG TABLET PO SCH (10:04)
[2020-02-06] MEDS: NYSTATIN 100,000 UNIT/GM TOPICAL CREAM 15 GM TUBE TP SCH ×2 (13:17→22:32)
[2020-02-06] MEDS: ATENOLOL 25 MG TABLET (FP) PO SCH (13:21)
[2020-02-06] MEDS: MUPIROCIN 2% TOPICAL OINTMENT 22 GM TUBE TP SCH ×2 (17:29→22:31)
[2020-02-07] MEDS: GABAPENTIN 100 MG CAPSULE PO SCH ×3 (06:07→21:06)
[2020-02-07] MEDS: HEPARIN NA (PORCINE) 5,000 UNITS/ML 1ML VIAL SQ SCH ×3 (06:07→21:06)
[2020-02-07] MEDS: LEVOTHYROXINE NA 100 MCG TABLET (FP) PO SCH (06:13)
[2020-02-07] MEDS ORDERED: cefTRIAXone SODIUM 1 GM VIAL ONE (08:57)
[2020-02-07] MEDS ORDERED: DEXTROSE 5%-WATER - 50 ML IVPB ONE (08:57)
[2020-02-07] MEDS ORDERED: PT OWN MED DRAWER 7, Y5N ONE (08:57)
[2020-02-07] MEDS: FAMOTIDINE 20 MG TABLET PO SCH (09:19)
[2020-02-07] MEDS: ATENOLOL 25 MG TABLET (FP) PO SCH (09:19)
[2020-02-07] MEDS: MUPIROCIN 2% TOPICAL OINTMENT 22 GM TUBE TP SCH ×2 (09:20→21:07)
[2020-02-07] MEDS: VALSARTAN 160 MG TABLET PO SCH (09:20)
[2020-02-07] MEDS: CEFTRIAXONE 1 GM in DEXTROSE 5%-WATER - 50 ML IVPB SCH (09:20)
[2020-02-07] MEDS: NYSTATIN 100,000 UNIT/GM TOPICAL CREAM 15 GM TUBE TP SCH ×2 (09:20→21:07)
[2020-02-08] MEDS: GABAPENTIN 100 MG CAPSULE PO SCH ×3 (05:02→21:55)
[2020-02-08] MEDS: HEPARIN NA (PORCINE) 5,000 UNITS/ML 1ML VIAL SQ SCH ×3 (05:02→21:55)
[2020-02-08] MEDS: LEVOTHYROXINE NA 100 MCG TABLET (FP) PO SCH (06:00)
[2020-02-08] MEDS ORDERED: PT OWN MED DRAWER 7, Y5N ONE (09:39)
[2020-02-08] MEDS ORDERED: cefTRIAXone SODIUM 1 GM VIAL ONE (09:40)
[2020-02-08] MEDS ORDERED: DEXTROSE 5%-WATER - 50 ML IVPB ONE (09:40)
[2020-02-08] MEDS: MUPIROCIN 2% TOPICAL OINTMENT 22 GM TUBE TP SCH ×2 (10:10→21:58)
[2020-02-08] MEDS: VALSARTAN 160 MG TABLET PO SCH (10:10)
[2020-02-08] MEDS: FAMOTIDINE 20 MG TABLET PO SCH (10:12)
[2020-02-08] MEDS: NYSTATIN 100,000 UNIT/GM TOPICAL CREAM 15 GM TUBE TP SCH ×2 (10:12→21:58)
[2020-02-08] MEDS: CEFTRIAXONE 1 GM in DEXTROSE 5%-WATER - 50 ML IVPB SCH (10:15)
[2020-02-08] MEDS: ATENOLOL 25 MG TABLET (FP) PO SCH (10:15)
[2020-02-09] MEDS: HEPARIN NA (PORCINE) 5,000 UNITS/ML 1ML VIAL SQ SCH ×3 (05:55→22:03)
[2020-02-09] MEDS: GABAPENTIN 100 MG CAPSULE PO SCH ×3 (05:56→22:03)
[2020-02-09] MEDS: LEVOTHYROXINE NA 100 MCG TABLET (FP) PO SCH (06:00)
[2020-02-09] MEDS ORDERED: PT OWN MED DRAWER 7, Y5N ONE (09:35)
[2020-02-09] MEDS ORDERED: cefTRIAXone SODIUM 1 GM VIAL ONE (09:35)
[2020-02-09] MEDS ORDERED: DEXTROSE 5%-WATER - 50 ML IVPB ONE (09:35)
[2020-02-09] MEDS: NYSTATIN 100,000 UNIT/GM TOPICAL CREAM 15 GM TUBE TP SCH ×2 (09:58→22:04)
[2020-02-09] MEDS: MUPIROCIN 2% TOPICAL OINTMENT 22 GM TUBE TP SCH ×2 (09:59→22:04)
[2020-02-09] MEDS: FAMOTIDINE 20 MG TABLET PO SCH (10:00)
[2020-02-09] MEDS: CEFTRIAXONE 1 GM in DEXTROSE 5%-WATER - 50 ML IVPB SCH (10:00)
[2020-02-09] MEDS: VALSARTAN 160 MG TABLET PO SCH (10:06)
[2020-02-09] MEDS: ATENOLOL 25 MG TABLET (FP) PO SCH (10:06)
[2020-02-10] MEDS: HEPARIN NA (PORCINE) 5,000 UNITS/ML 1ML VIAL SQ SCH ×3 (05:52→21:05)
[2020-02-10] MEDS: GABAPENTIN 100 MG CAPSULE PO SCH ×3 (05:53→21:05)
[2020-02-10] MEDS: LEVOTHYROXINE NA 100 MCG TABLET (FP) PO SCH (06:01)
[2020-02-10] MEDS: ACETAMINOPHEN 325 MG TABLET (FP) PO PRN ×2 (06:01→21:05)
[2020-02-10] MEDS ORDERED: DEXTROSE 5%-WATER - 50 ML IVPB ONE (09:05)
[2020-02-10] MEDS ORDERED: cefTRIAXone SODIUM 1 GM VIAL ONE (09:05)
[2020-02-10] MEDS: FAMOTIDINE 20 MG TABLET PO SCH (09:13)
[2020-02-10] MEDS: ATENOLOL 25 MG TABLET (FP) PO SCH (09:13)
[2020-02-10] MEDS: CEFTRIAXONE 1 GM in DEXTROSE 5%-WATER - 50 ML IVPB SCH (09:14)
[2020-02-10] MEDS: VALSARTAN 160 MG TABLET PO SCH (09:14)
[2020-02-10] MEDS: NYSTATIN 100,000 UNIT/GM TOPICAL CREAM 15 GM TUBE TP SCH ×2 (09:15→21:10)
[2020-02-10] MEDS: MUPIROCIN 2% TOPICAL OINTMENT 22 GM TUBE TP SCH ×2 (09:15→21:09)
[2020-02-11] MEDS: HEPARIN NA (PORCINE) 5,000 UNITS/ML 1ML VIAL SQ SCH ×3 (05:38→21:16)
[2020-02-11] MEDS: GABAPENTIN 100 MG CAPSULE PO SCH ×3 (05:39→21:16)
[2020-02-11] MEDS: ACETAMINOPHEN 325 MG TABLET (FP) PO PRN ×2 (05:39→14:11)
[2020-02-11] MEDS: LEVOTHYROXINE NA 100 MCG TABLET (FP) PO SCH (06:10)
[2020-02-11] MEDS: AMINO ACIDS/PROTEIN HYDROLYS 30 ML LIQUID.PKT PO SCH (08:31)
[2020-02-11] MEDS ORDERED: DEXTROSE 5%-WATER - 50 ML IVPB ONE (09:03)
[2020-02-11] MEDS ORDERED: PT OWN MED DRAWER 7, Y5N ONE ×2 (09:03→10:39)
[2020-02-11] MEDS ORDERED: cefTRIAXone SODIUM 1 GM VIAL ONE (09:03)
[2020-02-11] MEDS: VALSARTAN 160 MG TABLET PO SCH (10:35)
[2020-02-11] MEDS: FAMOTIDINE 20 MG TABLET PO SCH (10:36)
[2020-02-11] MEDS: CEFTRIAXONE 1 GM in DEXTROSE 5%-WATER - 50 ML IVPB SCH (10:36)
[2020-02-11] MEDS: ATENOLOL 25 MG TABLET (FP) PO SCH (10:40)
[2020-02-11] MEDS: MUPIROCIN 2% TOPICAL OINTMENT 22 GM TUBE TP SCH ×2 (10:48→21:17)
[2020-02-11] MEDS: NYSTATIN 100,000 UNIT/GM TOPICAL CREAM 15 GM TUBE TP SCH ×2 (10:48→21:17)
[2020-02-11 14:06] VITALS: TEMP 97.9
[2020-02-12] MEDS: HEPARIN NA (PORCINE) 5,000 UNITS/ML 1ML VIAL SQ SCH ×2 (05:55→13:20)
[2020-02-12] MEDS: GABAPENTIN 100 MG CAPSULE PO SCH ×2 (05:55→13:20)
[2020-02-12] MEDS: LEVOTHYROXINE NA 100 MCG TABLET (FP) PO SCH (05:59)
[2020-02-12 06:25] VITALS: BP 98/52; PULSE 72
[2020-02-12] MEDS ORDERED: cefTRIAXone SODIUM 1 GM VIAL ONE (08:57)
[2020-02-12] MEDS ORDERED: DEXTROSE 5%-WATER - 50 ML IVPB ONE (08:58)
[2020-02-12] MEDS ORDERED: PT OWN MED DRAWER 7, Y5N ONE (08:58)
[2020-02-12] MEDS: AMINO ACIDS/PROTEIN HYDROLYS 30 ML LIQUID.PKT PO SCH (09:07)
[2020-02-12] MEDS: ATENOLOL 25 MG TABLET (FP) PO SCH (09:07)
[2020-02-12] MEDS: CEFTRIAXONE 1 GM in DEXTROSE 5%-WATER - 50 ML IVPB SCH (09:07)
[2020-02-12] MEDS: FAMOTIDINE 20 MG TABLET PO SCH (09:08)
[2020-02-12] MEDS: VALSARTAN 160 MG TABLET PO SCH (09:09)
[2020-02-12] MEDS: NYSTATIN 100,000 UNIT/GM TOPICAL CREAM 15 GM TUBE TP SCH (09:09)
[2020-02-12] MEDS: MUPIROCIN 2% TOPICAL OINTMENT 22 GM TUBE TP SCH (09:09)
== END 2020-02-12 15:10 | DRG 593 ==
LOC: JER 11:47 → JERBED 15:13 → J7W 20:37
PROVIDERS: ADMIT Family Medicine; ATTEND Family Medicine
DX: L97.329 Non-pressure chronic ulcer of left ankle with unspecified severity (principal); S73.004A Unspecified dislocation of right hip, initial encounter; Z68.43 Body mass index [BMI] 50.0-59.9, adult; R26.2 Difficulty in walking, not elsewhere classified; E66.01 Morbid (severe) obesity due to excess calories; Z71.3 Dietary counseling and surveillance; K22.4 Dyskinesia of esophagus; E78.5 Hyperlipidemia, unspecified; I10 Essential (primary) hypertension; M21.959 Unspecified acquired deformity of unspecified thigh; M25.551 Pain in right hip; X58.XXXA Exposure to other specified factors, initial encounter; Y93.9 Activity, unspecified; Y92.9 Unspecified place or not applicable; Y99.9 Unspecified external cause status; M17.0 Bilateral primary osteoarthritis of knee; E88.09 Other disorders of plasma-protein metabolism, not elsewhere classified; M51.26 Other intervertebral disc displacement, lumbar region
CPT/HCPCS: 36415; 73502-TC-RT-FY; 73560-TC-RT-FY; 80053; 82550; 84443; 85025; 87040; 93005; 93010; 97116-GP; 97162-GP; 99285-25; C9803; J1644; U0003

== ENCOUNTER 2021-02-03 16:37 | Observation (INO) | payer OTHER ==
[2021-02-03 17:09] VITALS: BMI 51.7
[2021-02-03] MEDS ORDERED: ACETAMINOPHEN 500 MG TABLET (FP) PO ONE (17:28)
[2021-02-03] MEDS ORDERED: ASPIRIN 81 MG CHEWABLE TABLETS PO ONE (17:28)
[2021-02-03] MEDS ORDERED: ACETAMINOPHEN 325 MG TABLET (FP) ONE (17:33)
[2021-02-03] MEDS ORDERED: ASPIRIN 81 MG CHEWABLE TABLETS ONE (17:33)
[2021-02-03 18:43] LABS: BASO % 1.1 % (0-2.0); EOS % 2.2 % (0-4.5); HEMATOCRIT 47.3 % (32.4-45.2); LYMPH % 9.2 % (8-40); MCH 29.4 pg (25.7-33.7); MCHC 33.8 g/dl (32.0-36.0); MEAN PLT VOLUME 7.5 fl (7.5-11.1); MONO % 5.8 % (3.8-10.2); NEUT % 81.7 % (42.8-82.8); PLATELET COUNT 226 10^3/uL (134-434); RBC 5.44 M/mm3 (3.60-5.2); RDW 14.1 % (11.6-15.6); WHITE BLOOD COUNT 6.5 K/mm3 (4.0-10.0)
[2021-02-03 19:00] LABS: CHLORIDE 106 mmol/L (98-107); SODIUM 139 mmol/L (136-145)
[2021-02-03 19:02] LABS: ALBUMIN 3.2 g/dl (3.4-5.0); ANION GAP 5 MMOL/L (8-16); BLOOD UREA NITROGEN 15.7 mg/dL (7-18); CALCIUM 8.9 mg/dL (8.5-10.1); CO2 29 mmol/L (21-32)
[2021-02-03 19:03] LABS: GLUCOSE,RANDOM 98 mg/dL (74-106)
[2021-02-03 19:05] LABS: SGPT/ALT 26 U/L (13-61)
[2021-02-03 19:06] LABS: CREATININE 0.9 mg/dL (0.55-1.3); SGOT/AST 32 U/L (15-37)
[2021-02-03 19:07] LABS: BILIRUBIN,TOTAL 0.6 mg/dL (0.2-1); TOT PROT 7.5 g/dl (6.4-8.2)
[2021-02-03 19:08] LABS: ALK PHOS 153 U/L (45-117)
[2021-02-03 19:11] LABS: N-TERMINAL BNP 162.5 pg/ml (5-450)
[2021-02-04] MEDS ORDERED: ACETAMINOPHEN 325 MG TABLET (FP) PO PRN (03:46)
[2021-02-04 05:50] LABS: BASO % 1.2 % (0-2.0); EOS % 2.2 % (0-4.5); HEMATOCRIT 45.9 % (32.4-45.2); HEMOGLOBIN 15.5 GM/dL (10.7-15.3); LYMPH % 12.5 % (8-40); MCH 29.9 pg (25.7-33.7); MCHC 33.8 g/dl (32.0-36.0); MEAN CELL VOLUME 88.5 fl (80-96); MEAN PLT VOLUME 7.4 fl (7.5-11.1); MONO % 7.8 % (3.8-10.2); NEUT % 76.3 % (42.8-82.8); PLATELET COUNT 219 10^3/uL (134-434); RBC 5.19 M/mm3 (3.60-5.2); RDW 14.3 % (11.6-15.6); WHITE BLOOD COUNT 6.8 K/mm3 (4.0-10.0)
[2021-02-04 06:03] LABS: CHLORIDE 106 mmol/L (98-107); SODIUM 141 mmol/L (136-145)
[2021-02-04 06:07] LABS: CALCIUM 8.7 mg/dL (8.5-10.1)
[2021-02-04 06:08] LABS: ANION GAP 5 MMOL/L (8-16); BLOOD UREA NITROGEN 15.4 mg/dL (7-18); CO2 29 mmol/L (21-32); GLUCOSE,RANDOM 96 mg/dL (74-106); MAGNESIUM 2.1 mg/dL (1.8-2.4)
[2021-02-04 06:10] LABS: CREATININE 1.1 mg/dL (0.55-1.3); SGOT/AST 20 U/L (15-37); SGPT/ALT 25 U/L (13-61)
[2021-02-04 06:11] LABS: CHOLESTEROL 252 mg/dL (50-200); PHOSPHOROUS 3.6 mg/dL (2.5-4.9); TRIGLYCERIDES 92 mg/dL (0-150)
[2021-02-04 06:12] LABS: BILIRUBIN,TOTAL 0.7 mg/dL (0.2-1); LDL CHOLESTEROL (ONLY SJRH) 155 mg/dL (5-100); TOT PROT 6.9 g/dl (6.4-8.2)
[2021-02-04 06:13] LABS: ALK PHOS 139 U/L (45-117); HDL CHOLESTEROL 71 mg/dL (40-60)
[2021-02-04] MEDS: ENOXAPARIN NA (PORCINE) 40 MG/0.4 ML DISP.SYRIN SQ SCH (11:07)
[2021-02-04] MEDS: VALSARTAN 80 MG TABLET PO SCH (11:07)
[2021-02-04] MEDS: LEVOTHYROXINE NA 100 MCG TABLET (FP) PO SCH (11:08)
[2021-02-04] MEDS: ATENOLOL 25 MG TABLET (FP) PO SCH (11:08)
[2021-02-04] MEDS ORDERED: FLU VACC QS2021-22(6MOS UP)/PF 60 MCG/0.5 ML SYRINGE IM ONE (11:47)
[2021-02-04] MEDS: GABAPENTIN 300 MG CAPSULE PO SCH ×2 (13:54→21:20)
[2021-02-05] MEDS: GABAPENTIN 300 MG CAPSULE PO SCH ×3 (05:49→21:13)
[2021-02-05] MEDS: LEVOTHYROXINE NA 100 MCG TABLET (FP) PO SCH (06:18)
[2021-02-05] MEDS: ATENOLOL 25 MG TABLET (FP) PO SCH (09:06)
[2021-02-05] MEDS: VALSARTAN 80 MG TABLET PO SCH (09:06)
[2021-02-05] MEDS: ENOXAPARIN NA (PORCINE) 40 MG/0.4 ML DISP.SYRIN SQ SCH (09:06)
[2021-02-05] MEDS: ATORVASTATIN CA 20 MG TABLET (FP) PO SCH ×2 (21:12→21:15)
[2021-02-06] MEDS: GABAPENTIN 300 MG CAPSULE PO SCH ×3 (05:32→21:11)
[2021-02-06] MEDS: LEVOTHYROXINE NA 100 MCG TABLET (FP) PO SCH (06:07)
[2021-02-06] MEDS: ATENOLOL 25 MG TABLET (FP) PO SCH (10:19)
[2021-02-06] MEDS: ENOXAPARIN NA (PORCINE) 40 MG/0.4 ML DISP.SYRIN SQ SCH (10:19)
[2021-02-06] MEDS: VALSARTAN 80 MG TABLET PO SCH (10:19)
[2021-02-06] MEDS: ATORVASTATIN CA 20 MG TABLET (FP) PO SCH (21:11)
[2021-02-07] MEDS: GABAPENTIN 300 MG CAPSULE PO SCH ×3 (05:56→21:19)
[2021-02-07] MEDS: LEVOTHYROXINE NA 100 MCG TABLET (FP) PO SCH (06:06)
[2021-02-07] MEDS: VALSARTAN 80 MG TABLET PO SCH (09:55)
[2021-02-07] MEDS: ATENOLOL 25 MG TABLET (FP) PO SCH (09:55)
[2021-02-07] MEDS: ENOXAPARIN NA (PORCINE) 40 MG/0.4 ML DISP.SYRIN SQ SCH (09:55)
[2021-02-07] MEDS: AMINO ACIDS/PROTEIN HYDROLYS 30 ML LIQUID.PKT PO SCH (18:21)
[2021-02-07] MEDS: ATORVASTATIN CA 20 MG TABLET (FP) PO SCH (21:19)
[2021-02-08] MEDS: LEVOTHYROXINE NA 100 MCG TABLET (FP) PO SCH (06:14)
[2021-02-08] MEDS: GABAPENTIN 300 MG CAPSULE PO SCH ×3 (06:14→20:59)
[2021-02-08] MEDS ORDERED: MULTIVIT-MINERALS ORAL LIQUID PO SCH (10:00)
[2021-02-08] MEDS ORDERED: PT OWN MED DRAWER 7, Y5N ONE (10:04)
[2021-02-08] MEDS: AMINO ACIDS/PROTEIN HYDROLYS 30 ML LIQUID.PKT PO SCH ×2 (10:09→17:36)
[2021-02-08] MEDS: VALSARTAN 80 MG TABLET PO SCH (10:10)
[2021-02-08] MEDS: ATENOLOL 25 MG TABLET (FP) PO SCH (10:10)
[2021-02-08] MEDS: ENOXAPARIN NA (PORCINE) 40 MG/0.4 ML DISP.SYRIN SQ SCH (10:12)
[2021-02-08] MEDS: ATORVASTATIN CA 20 MG TABLET (FP) PO SCH (20:59)
[2021-02-08 23:36] VITALS: BP 148/70; PULSE 70; TEMP 98.5
== END 2021-02-09 00:10 | disposition home health service (06) ==
LOC: JER 16:37 → JERBED 18:17 → J4S 02-04 08:26
PROVIDERS: ADMIT Internal Medicine; ATTEND Family Medicine
PROC: 3E023GC Introduction of Other Therapeutic Substance into Muscle, Percutaneous Approach (ICD-10-PCS; principal; 2021-02-03)
PROC: 3E0234Z Introduction of Serum, Toxoid and Vaccine into Muscle, Percutaneous Approach (ICD-10-PCS; 2021-02-03)
DX: I11.9 Hypertensive heart disease without heart failure (principal); I25.10 Atherosclerotic heart disease of native coronary artery without angina pectoris; E03.9 Hypothyroidism, unspecified; K27.9 Peptic ulcer, site unspecified, unspecified as acute or chronic, without hemorrhage or perforation; M79.7 Fibromyalgia; M48.00 Spinal stenosis, site unspecified; R13.10 Dysphagia, unspecified; N64.4 Mastodynia; R26.2 Difficulty in walking, not elsewhere classified; M51.26 Other intervertebral disc displacement, lumbar region; H57.9 Unspecified disorder of eye and adnexa; E66.01 Morbid (severe) obesity due to excess calories; M15.9 Polyosteoarthritis, unspecified; R01.1 Cardiac murmur, unspecified; M54.9 Dorsalgia, unspecified; N63.0 Unspecified lump in unspecified breast; Z68.43 Body mass index [BMI] 50.0-59.9, adult; Z98.49 Cataract extraction status, unspecified eye; Z91.018 Allergy to other foods; Z29.9 Encounter for prophylactic measures, unspecified
CPT/HCPCS: 36415; 71045-TC-FY; 71275-TC; 76641-TC-50; 80053; 80061; 82550; 82553; 82607; 83735; 83880; 84100; 84439; 84443; 84484; 85025; 85379; 90686; 93005; 93010; 93970-TC; 96372; 97161-GP; 99285-25; C9803; G0378; Q9967; U0003; U0005

== ENCOUNTER 2021-04-11 12:17 | Emergency (ER) | payer OTHER ==
[2021-04-11 12:50] VITALS: PULSE 74; BMI 58.6
[2021-04-11] MEDS ORDERED: ACETAMINOPHEN 325 MG TABLET (FP) PO ONE (13:45)
[2021-04-11] MEDS ORDERED: ACETAMINOPHEN 325 MG TABLET (FP) ONE (14:05)
[2021-04-11 14:12] LABS: EPI CELLS 9 /uL (0-25.1); HYALINE CASTS 5 /uL (0-3.1); URINE APPEARANCE CLOUDY; URINE BACTERIA 386 /uL (0-1359); URINE BILIRUBIN NEGATIVE (NEGATIVE); URINE COLOR ORANGE; URINE GLUCOSE (UA) NEGATIVE (NEGATIVE); URINE KETONE NEGATIVE (NEGATIVE); URINE LEUK ESTERASE 3+ (NEGATIVE); URINE NITRITE NEGATIVE (NEGATIVE); URINE PROTEIN 1+ (NEGATIVE); URINE RBC 3303 /uL (0-23.9); URINE WBC 1326 /uL (0-25.8)
[2021-04-11 14:26] LABS: ALBUMIN 3.1 g/dl (3.4-5.0); BLOOD UREA NITROGEN 16.2 mg/dL (7-18)
[2021-04-11 14:30] LABS: CREATININE 0.9 mg/dL (0.55-1.3)
[2021-04-11 14:31] LABS: BILIRUBIN,TOTAL 0.6 mg/dL (0.2-1); TOT PROT 6.8 g/dl (6.4-8.2)
[2021-04-11 14:59] LABS: BASO % 1.2 % (0-2.0); HEMATOCRIT 46.2 % (32.4-45.2); HEMOGLOBIN 15.5 GM/dL (10.7-15.3); LYMPH % 14.2 % (8-40); MCH 29.5 pg (25.7-33.7); MCHC 33.5 g/dl (32.0-36.0); MEAN CELL VOLUME 88.1 fl (80-96); MEAN PLT VOLUME 7.7 fl (7.5-11.1); MONO % 8.4 % (3.8-10.2); NEUT % 71.2 % (42.8-82.8); PLATELET COUNT 197 10^3/uL (134-434); RBC 5.24 M/mm3 (3.60-5.2); WHITE BLOOD COUNT 5.9 K/mm3 (4.0-10.0)
[2021-04-11 18:19] VITALS: BP 112/54; TEMP 97.9
== END 2021-04-11 18:00 | disposition home or self-care (01) ==
LOC: JER 12:17
DX: N30.91 Cystitis, unspecified with hematuria (principal); E66.01 Morbid (severe) obesity due to excess calories
CPT/HCPCS: 36415; 80053; 81003; 85025; 87086; 87186; 99283-25

== ENCOUNTER 2022-01-09 12:18 | Emergency (ER) | payer OTHER ==
[2022-01-09 12:56] VITALS: TEMP 98.4; BMI 60.2
[2022-01-09 13:41] LABS: HEMATOCRIT 46.1 % (32.4-45.2); HEMOGLOBIN 15.5 GM/dL (10.7-15.3); MCH 29.3 pg (25.7-33.7); MCHC 33.7 g/dl (32.0-36.0); MEAN CELL VOLUME 86.9 fl (80-96); MEAN PLT VOLUME 7.6 fl (7.5-11.1); PLATELET COUNT 222 10^3/uL (134-434); RDW 15.1 % (11.6-15.6); WHITE BLOOD COUNT 5.8 K/mm3 (4.0-10.0)
[2022-01-09] MEDS ORDERED: ACETAMINOPHEN 1000 MG/100 ML BAG IVPB ONE (13:51)
[2022-01-09] MEDS ORDERED: ACETAMINOPHEN INJECTION 100 ML IVPB ONE (13:56)
[2022-01-09 14:04] LABS: ALBUMIN 2.8 g/dl (3.4-5.0); BLOOD UREA NITROGEN 14.8 mg/dL (7-18); CALCIUM 9.1 mg/dL (8.5-10.1)
[2022-01-09 14:08] LABS: BILIRUBIN,TOTAL 0.6 mg/dL (0.2-1); TOT PROT 6.5 g/dl (6.4-8.2)
[2022-01-09] MEDS ORDERED: CEFTRIAXONE 1 GM in DEXTROSE 5%-WATER - 50 ML IVPB ONE (16:19)
[2022-01-09] MEDS ORDERED: CEFTRIAXONE 1 GM/50 ML BAG ONE (17:14)
[2022-01-10] MEDS ORDERED: SODIUM CHLORIDE 500 ML IV STA (00:39)
[2022-01-10 00:59] VITALS: BP 105/68; PULSE 68; RESP 20
== END 2022-01-10 00:59 | disposition short-term general hospital (02) ==
LOC: JER 12:18
PROC: 3E033GC Introduction of Other Therapeutic Substance into Peripheral Vein, Percutaneous Approach (ICD-10-PCS; principal; 2022-01-09)
DX: L03.115 Cellulitis of right lower limb (principal); N93.9 Abnormal uterine and vaginal bleeding, unspecified
CPT/HCPCS: 36415; 76856-TC; 80053; 85027; 93971-TC; 99285-25; C9803-CS; U0003; U0005

== ENCOUNTER 2023-08-23 18:56 | Emergency (ER) | payer OTHER ==
[2023-08-23] MEDS ORDERED: EPINEPHrine 1:10,000 (P-F SYR) 1 MG/10 ML DISP.SYRIN ONE ×2 (19:11→20:05)
[2023-08-23] MEDS ORDERED: NOREPINEPHRINE BITARTRATE 4 MG/4 ML ML IV ONE (19:31)
[2023-08-23 19:43] LABS: VENOUS BASE EXCESS -26.8 mmol/L (-2-2); VENOUS O2 SATURATION 42.4 % (70-80)
[2023-08-23] MEDS ORDERED: CALCIUM CHLORIDE 1 GM/10 ML *DISP.SYRIN ONE (19:44)
[2023-08-23 19:58] LABS: INR 1.43 (0.83-1.09)
[2023-08-23 20:01] LABS: ACTIVATED PTT 56.7 SECONDS (25.2-36.5)
[2023-08-23 20:04] LABS: VENOUS PCO2 103.8 mmHg (38-52); VENOUS PH < 6.717 (7.310-7.410)
[2023-08-23 20:11] LABS: CHLORIDE 100 mmol/L (98-107); SODIUM 136 mmol/L (136-145)
[2023-08-23 20:13] LABS: CO2 14 mmol/L (21-32); GLUCOSE,RANDOM 216 mg/dL (74-106)
[2023-08-23 20:14] LABS: ALBUMIN 1.6 g/dl (3.4-5.0); BLOOD UREA NITROGEN 64.9 mg/dL (7-18)
[2023-08-23 20:17] LABS: CREATININE 3.7 mg/dL (0.55-1.3); SGOT/AST 158 U/L (15-37); SGPT/ALT 53 U/L (13-61)
[2023-08-23 20:18] LABS: BILIRUBIN,TOTAL 0.5 mg/dL (0.2-1); TOT PROT 6.4 g/dl (6.4-8.2)
[2023-08-23 20:20] LABS: ALK PHOS 219 U/L (45-117)
[2023-08-23 20:30] LABS: ANION GAP 22 mmol/L (4-13); LACTIC ACID > 15.0 mmol/L (0.4-2.0); POTASSIUM 7.5 mmol/L (3.5-5.1)
[2023-08-23 20:56] LABS: HEMATOCRIT 43.4 % (32.4-45.2); HEMOGLOBIN 11.5 GM/dL (10.7-15.3); MCH 22.7 pg (25.7-33.7); MCHC 26.6 g/dl (32.0-36.0); MEAN CELL VOLUME 85.2 fl (80-96); PLATELET COUNT 220 10^3/uL (134-434); RBC 5.09 M/mm3 (3.60-5.2); RDW 21.3 % (11.6-15.6)
[2023-08-23 20:59] LABS: WHITE BLOOD COUNT 14.8 K/mm3 (4.0-10.0)
[2023-08-23 21:14] VITALS: BP 0/0; PULSE 0; RESP 0; TEMP 0; BMI 61.9
[2023-08-23 21:24] LABS: ANISOCYTOSIS 2+; MACROCYTOSIS 2+
[2023-08-23] MEDS: SODIUM CHLORIDE 0.9% 500 ML INFUS.BAG IV ONE (21:35)
[2023-08-23] MEDS: NOREPINEPHRINE 0.9 % NACL 8 MG/250 ML BAG IVPB SCH (21:35)
[2023-08-23] MEDS: AMIODARONE HCL 150 MG/3 ML VIAL IVPUSH ONE (21:35)
[2023-08-23] MEDS: NOREPINEPHRINE BITARTRATE 4,000 MCG in DEXTROSE 5%-WATER - 496 ML IV SCH (21:35)
== END 2023-08-23 23:35 | disposition expired ==
LOC: JER 18:56
PROC: 0BH17EZ Insertion of Endotracheal Airway into Trachea, Via Natural or Artificial Opening (ICD-10-PCS; principal; 2023-08-23)
PROC: 5A12012 Performance of Cardiac Output, Single, Manual (ICD-10-PCS; 2023-08-23)
PROC: 3E033GC Introduction of Other Therapeutic Substance into Peripheral Vein, Percutaneous Approach (ICD-10-PCS; 2023-08-23)
DX: I46.9 Cardiac arrest, cause unspecified (principal); J96.90 Respiratory failure, unspecified, unspecified whether with hypoxia or hypercapnia; Z20.822 Contact with and (suspected) exposure to COVID-19
CPT/HCPCS: 0241U-QW; 31500; 36415; 71045-TC-FY; 80053; 82803; 82962; 83605; 84484; 85025; 85610; 85730; 92950; 93005; 93010; 96374; 99285-25